=== PATIENT | male | born 1990 | race Caucasian/White ===

== ENCOUNTER 2020-10-02 10:39 | Outpatient (REF) | payer MEDICAID, SELFPAY | END 2020-10-02 10:40 | disposition home or self-care (01) | LOC: HO.LAB 10:39 | PROVIDERS: Visit Provider Internal Medicine | DX: Z20.828 Contact with and (suspected) exposure to other viral communicable diseases (principal) | CPT/HCPCS: C9803; U0003 ==

== ENCOUNTER 2020-10-31 14:56 | Outpatient (REF) | payer MEDICAID, SELFPAY | END 2020-10-31 14:57 | disposition home or self-care (01) | LOC: HO.LAB 14:56 | PROVIDERS: Visit Provider Internal Medicine | DX: Z20.828 Contact with and (suspected) exposure to other viral communicable diseases (principal) | CPT/HCPCS: C9803; U0003 ==

== ENCOUNTER 2021-08-26 12:50 | Outpatient (REF) | payer MEDICAID, SELFPAY | END 2021-08-26 12:51 | disposition home or self-care (01) | LOC: HO.LAB 12:50 | PROVIDERS: Visit Provider Internal Medicine | DX: Z20.822 Contact with and (suspected) exposure to COVID-19 (principal) | CPT/HCPCS: C9803; U0003; U0005 ==

== ENCOUNTER 2021-08-29 09:51 | Outpatient (REF) | payer MEDICAID, SELFPAY | END 2021-08-29 09:52 | disposition home or self-care (01) | LOC: HO.LAB 09:51 | PROVIDERS: Visit Provider Internal Medicine | DX: Z20.822 Contact with and (suspected) exposure to COVID-19 (principal) | CPT/HCPCS: C9803; U0003; U0005 ==

== ENCOUNTER 2021-09-30 22:21 | Emergency (ER) | payer MEDICAID, SELFPAY ==
[2021-09-30 22:31] VITALS: BP 126/77; PULSE 78; RESP 16; TEMP 36.8; O2SAT 97; BMI 29.0
[2021-09-30] MEDS: Amoxicillin 500 MG CAPSULE PO (23:59)
[2021-09-30] MEDS: Ibuprofen 800 MG TABLET PO (23:59)
--- NOTE | 2021-10-01 00:01 | ED_ITS ---
HPI - Dental/Oral General Chief complaint: Dental/Oral Stated complaint: dental pain Time Seen by Provider: 09/30/21 23:36 Source: patient Mode of arrival: ambulatory Limitations: no limitations History of Present Illness HPI Narrative: Patient presents to the ED for left upper molar dental pain for days. Patient denies any facial swelling, drooling, change in voice, headacne, recent trauma, weakness, neck pain, chest pain, or shortness of breath. Related Data Previous Rx's Medication Instructions Recorded amoxicillin 500 mg capsule 500 mg PO TID 10 Days #30 cap 10/01/21 naproxen 500 mg tablet 500 mg PO BID PRN #20 tab 10/01/21 Allergies Allergy/AdvReac Type Severity Reaction Status Date / Time No Known Allergies Allergy Verified 09/30/21 22:49 Review of Systems Review of Systems: Yes all other systems are reviewed and are negative Constitutional: Constitutional: Reports as per HPI and Reports no additional constitutional complaints Eyes: Eyes: Reports as per HPI and Reports no additional eye complaints ENT: Reports system reviewed and no additional complaints, except as documented and Reports as per HPI Comments: dental pain. Cardiovascular: Cardiovascular: Reports as per HPI and Reports no additional cardiovascular complaints Respiratory: Respiratory: Reports as per HPI and Reports no additional respiratory complaints Gastrointestinal: Gastrointestinal: Reports as per HPI and Reports no additional gastrointestinal complaints Genitourinary: Genitourinary: Reports no additional male genitourinary complaints and Reports as per HPI Musculoskeletal: Musculoskeletal: Reports no additional musculoskeletal complaints and Reports as per HPI Neurologic: Reports system reviewed and no additional complaints, except as documented and Reports as per HPI Psychiatric: Psychiatric: Reports no additional psychiatric complaints and Reports as per HPI [facility] Social History Social History Advance Directives: No Advance Directives Information Provided: No Physical Exam Vital Signs: Vital Signs: Last Vital Signs Temp 98.2 F 09/30/21 22:31 Pulse 78 09/30/21 22:31 Resp 16 09/30/21 22:31 BP 126/77 09/30/21 22:31 Pulse Ox 97 09/30/21 22:31 Body Mass Index 29.0 Const: General: cooperative, healthy appearing, comfortable, no acute distress, well developed, alert, awake and Physically active Orientation/consciousness: patient oriented x3 HENMT: Other: negative for facial or neck swelling Head: Yes normal to inspection, Yes No palpable skull fracture present, Yes normocephalic, Yes atraumatic, No abrasion, No Acrocyanosis present, No Gordon's sign, No contusion, No cranial bruits, No hematoma, No laceration, No occipital foramen tenderness, No palpable skull fracture, No raccoon eyes, No scalp lesion, No scalp tenderness, No Temporal artery tenderness present and No periorbital ecchymosis Teeth image: 1. tooth is decaying and tender on palpation. negative for gum swelling, redness, pus discharge, or abscess. Eyes: General: appearance normal, both eyes and all related structures Neck: Neck: Yes normal visual inspection, Yes full ROM, Yes no lymp hadenopathy, Yes no meningeal signs, Yes trachea midline, Yes supple, No anterior neck swelling and No tender Chest: Chest palpation & inspection: normal inspection of the chest and normal palpation of entire chest wall Resp: Effort & Inspection: normal respiratory effort and able to speak in complete sentences Auscultation: clear to auscultation bilaterally Cardio: Jugular venous distension: no JVD Heart sounds: S1 normal heart sound present and S2 normal heart sound present GI: Inspection: Yes normal to inspection and No abdominal wall ecchymosis Palpation (GI): Soft to palpation, not firm, nontender, no guarding and not rigid : General: No CVA tenderness and Yes no CVA tenderness Back/Spine/Pelvis: Back: no CVA tenderness, No CVA tenderness and No back tenderness Skin: General skin exam: no rashes or lesions noted and elasticity normal Neuro: General: patient oriented x3, gait normal, no meningeal signs and CN's II-XI intact bilaterally Cranial nerves: Yes CN's II-XII intact bilaterally Extrem: General: Yes normal to inspection and Yes full ROM Psych: Appearance: grossly normal, well kempt and not disheveled Course Course Course Narrative: Toothache. Reevaluation(s) Reevaluation #1: Patient discharged with antibiotics and pain meds. patient given lists of dentists Time: 00:44 MDM - Dental/Oral MDM Narrative Medical decision making narrative: toothache Discharge Plan Discharge Clinical Impression: Toothache Patient Disposition: Home, Self-Care Instructions: Toothache (ED) Additional Instructions: Return to the ED immediatley for any facial swelling, drooling, severe pain, neck swelling, change in voice, chest pain, shorntess of breath, intractable fevers, or any other concerning symptoms. Please follow up with any dentist on list we gave you in the ED. Prescriptions: New amoxicillin 500 mg capsule 500 mg PO TID 10 Days Qty: 30 RF: 0 naproxen 500 mg tablet 500 mg PO BID PRN (Reason: pain) Qty: 20 RF: 0 Stand Alone Forms: Work/School Release Interventions: ED Discharge Assessment Last Done: 10/01/21 00:13 Discharge Date/Time: 10/01/21 00:18 Print Language: Spanish
== END 2021-10-01 00:18 | disposition home or self-care (01) ==
PROVIDERS: Emergency Provider Internal Medicine
DX: K08.89 Other specified disorders of teeth and supporting structures (principal); Z79.899 Other long term (current) drug therapy
CPT/HCPCS: 99283; 99284

== ENCOUNTER 2021-10-10 04:36 | Emergency (ER) | payer MEDICAID, SELFPAY ==
[2021-10-10 04:38] VITALS: BP 129/82; PULSE 120; RESP 16; TEMP 36.9; O2SAT 98; BMI 28.8
[2021-10-10] MEDS: diphenhydrAMINE HCL 25 MG TABLET 50 MG PO (05:21)
[2021-10-10 05:26] VITALS: BP 133/80; PULSE 97; RESP 16; TEMP 36.8; O2SAT 97
--- NOTE | 2021-10-10 05:32 | PC.NURSE ---
pt a&o, no sob or chest pain. pt has rash on back and trunk. pt able to speak in full sentences, no respiratory distress.
--- NOTE | 2021-10-10 05:44 | ED.SKABFB ---
HPI - Skin/Abscess/Foreign Bdy General Chief complaint: Skin/Abscess/Foreign Body Stated complaint: RASH ALLERGIC REACTION Time Seen by Provider: 10/10/21 05:14 Source: patient Mode of arrival: ambulatory History of Present Illness HPI narrative: This is a 31-year-old male with history of asthma who presents to the ER after having taken a family member's tramadol and then awoke approximately 1 hour ago with feeling of itchy skin and noting that he had a rash especially to his back and trunk area. He otherwise denies any difficulty breathing or swallowing and denies any facial/tongue/lip swelling or nausea/vomiting/diarrhea. Related Data Previous Rx's Medication Instructions Recorded amoxicillin 500 mg capsule 500 mg PO TID 10 Days #30 cap 10/01/21 naproxen 500 mg tablet 500 mg PO BID PRN #20 tab 10/01/21 Allergies Allergy/AdvReac Type Severity Reaction Status Date / Time No Known Allergies Allergy Verified 09/30/21 22:49 Review of Systems Review of Systems: Pertinent positives and negatives as stated in HPI 10 point review of systems is otherwise negative. PMFSH Past Medical History Source: nursing notes reviewed Medical History Asthma Asthma action plan declined Social History Social History Patient Tobacco Use Status: Current everyday Tobacco user Use of substances other than those prescribed or required for medical reasons: No Substance Use Type: Marijuana Advance Directives: No Advance Directives Information Provided: Yes Physical Exam Vital Signs: Vital Signs: Last Vital Signs Temp 98.2 F 10/10/21 05:26 Pulse 97 10/10/21 05:26 Resp 16 10/10/21 05:26 BP 133/80 10/10/21 05:26 Pulse Ox 97 10/10/21 05:26 Body Mass Index 28.8 VITAL SIGNS: Reviewed. GENERAL: Well developed, well nourished, in no acute distress. HEAD: Normocephalic/atraumatic EYES: PERRLA, EOMI OROPHARYNX: no oral lesions noted, posterior pharynx clear, no facial/lip/tongue swelling LUNGS: Normal breath sounds. No adventitious sounds or accessory muscle use. SpO2<97> CARDIOVASCULAR: Regular rate and rhythm without noted murmurs ABDOMEN: Soft, non-tender, non-distended with bowel sounds. SKIN: Inspection of the skin reveals urticarial rash noted to back and trunk area NEUROLOGIC: Alert and oriented x 4. Course Course Course Narrative: This is a 31-year-old male with history and clinical presentation consistent with urticarial rash likely secondary to tramadol. This was communicated to the patient and he was cautioned regarding taking the medication again. Distribution was not consistent with direct contact exposure to new lotions/colognes/body soaps and patient denied any new food items. Patient was provided with 50 mg of Benadryl p.o. with good response and discharged home in stable condition. Discharge Plan Discharge Clinical Impression: Urticarial rash Patient Disposition: Home, Self-Care Instructions: Urticaria (ED) Additional Instructions: Return to the ER for acute worsening of symptoms. Prescriptions: No Action amoxicillin 500 mg capsule 500 mg PO TID 10 Days Qty: 30 RF: 0 naproxen 500 mg tablet 500 mg PO BID PRN (Reason: pain) Qty: 20 RF: 0
== END 2021-10-10 06:17 | disposition home or self-care (01) ==
PROVIDERS: Emergency Provider Student in an Organized Health Care Education/Training Program
DX: L50.0 Allergic urticaria (principal); T40.425A Adverse effect of tramadol, initial encounter; Y92.9 Unspecified place or not applicable
CPT/HCPCS: 99283; 99284; Q0163

== ENCOUNTER 2022-05-12 07:04 | Emergency (ER) | payer MEDICAID, SELFPAY ==
[2022-05-12 07:15] VITALS: BP 155/103; PULSE 94; RESP 24; TEMP 37.1; O2SAT 98; BMI 28.2
--- NOTE | 2022-05-12 07:22 | ED_ITS ---
HPI - Ear Problem General Chief complaint: Ear Problems Stated complaint: Ear infection Time Seen by Provider: 05/12/22 07:22 Source: patient Mode of arrival: ambulatory Limitations: no limitations History of Present Illness MD Complaint: ear pain Location: right ear Duration: constant Severity: moderate Relieving factors: nothing Exacerbating factors: position of head and palpation Context: other (hx of ear infection in the past) Discharge from ear: no Treatment prior to arrival: other (tried to put hydrogen peroxide in ear) Related Data Previous Rx's Medication Instructions Recorded amoxicillin 500 mg capsule 500 mg PO TID 10 days #30 caps 10/01/21 naproxen 500 mg tablet 500 mg PO BID PRN pain #20 tabs 10/01/21 amoxicillin 500 mg capsule 500 mg PO TID 7 days #21 caps 05/12/22 ibuprofen 600 mg tablet 600 mg PO Q6H PRN pain #30 tabs 05/12/22 ofloxacin 0.3 % ear drops 10 drp otic (ears) DAILY 7 days #5 05/12/22 mL Allergies Allergy/AdvReac Type Severity Reaction Status Date / Time No Known Allergies Allergy Verified 09/30/21 22:49 Review of Systems Review of Systems: Constitutional : no Fever, no Chills ENT/Mouth : no sore throat, no runny nose, pos ear pain Eyes: No Discharge Cardiovascular : No Chest Pain, No SOB Respiratory : No Cough, No Sputum Gastrointestinal : No Nausea, No Vomiting, No Diarrhea Musculoskeletal : positive Myalgia Skin : No rash Neuro : No Headache PMFSH Past Medical History Attestation statement: The following information was validated with the patient. Medical History Asthma Asthma action plan declined Social History Social History Patient Tobacco Use Status: Current everyday Tobacco user Substance Use Type: Marijuana Advance Directives: No Advance Directives Information Provided: No Physical Exam Vital Signs: Vital Signs: Last Vital Signs Temp 98.7 F 05/12/22 07:15 Pulse 94 05/12/22 07:15 Resp 24 H 05/12/22 07:15 BP 155/103 H 05/12/22 07:15 Pulse Ox 98 05/12/22 07:15 O2 Del Method 05/12/22 07:15 BMI result Body Mass Index 28.2 Appearance: Alert. Oriented X3. No acute distress. Eyes: Pupils equal, round and reactive to light. ENT: Pharynx normal. no swelling no trismus, L ear normal, R ear ext normal no swelling, R ear canal moderate erythema no swelling, R TM bulging with loss of landmarks and light reflex no perforation, small yellow effusion seen Neck: Normal inspection. Neck supple. CVS: Pulses normal. Respiratory: No respiratory distress. Abdomen: atraumatic Skin: Skin warm and dry. Normal skin color. Extremities: No lower extremity edema. Neuro: Oriented X 3. No motor deficit. No sensory deficit. MDM - Ear MDM Narrative Medical decision making narrative: 31 yo male hx of asthma here with R otitis externa and R AOM - no signs of deeper space infection, neuro intact - no recent swimming activity no perf oration at this time will start on gtts, oral amoxicillin and NSAIDs, discussed follow up Discharge Plan Discharge Clinical Impression: Otitis externa Qualifiers: Otitis externa type: diffuse Chronicity: acute Laterality: right Qualified Code(s): H60.311 - Diffuse otitis externa, right ear Otitis media Qualifiers: Otitis media type: suppurative Chronicity: acute Laterality: right Recurrence: non-recurrent Spontaneous tympanic membrane rupture: without spontaneous rupture Qualified Code(s): H66.001 - Acute suppurative otitis media without spontaneous rupture of ear drum, right ear Patient Disposition: Home, Self-Care Instructions: Otitis Externa (ED), Ear Infection (ED) Additional Instructions: return to ED for any worsening symptoms or concerns Prescriptions: New amoxicillin 500 mg capsule 500 mg PO TID 7 Days Qty: 21 0RF ofloxacin 0.3 % drops 10 drp otic (ears) DAILY 7 Days Qty: 5 0RF ibuprofen 600 mg tablet 600 mg PO Q6H PRN (Reason: pain) Qty: 30 0RF No Action amoxicillin 500 mg capsule 500 mg PO TID 10 Days Qty: 30 0RF naproxen 500 mg tablet 500 mg PO BID PRN (Reason: pain) Qty: 20 0RF
[2022-05-12] MEDS: Amoxicillin 500 MG CAPSULE PO (07:36)
[2022-05-12] MEDS: Ibuprofen 600 MG TABLET PO (07:36)
== END 2022-05-12 07:40 | disposition home or self-care (01) ==
PROVIDERS: Emergency Provider Emergency Medicine
DX: H60.311 Diffuse otitis externa, right ear (principal); H66.001 Acute suppurative otitis media without spontaneous rupture of ear drum, right ear; F17.200 Nicotine dependence, unspecified, uncomplicated; F12.90 Cannabis use, unspecified, uncomplicated
CPT/HCPCS: 99283

== ENCOUNTER 2023-02-17 15:14 | Emergency (ER) | payer MEDICAID, SELFPAY ==
--- NOTE | 2023-02-17 15:49 | ED.GENADULT ---
HPI - General Adult General Chief complaint: Upper Respiratory Symptoms <Claude Wilder - Last Filed: 02/17/23 15:50> Stated complaint: Fever, cough, congestion <Claude Wilder - Last Filed: 02/17/23 15:50> Time Seen by Provider: 02/17/23 15:57 <Claude Wilder - Last Filed: 02/17/23 15:50> Source: patient <DELILAH Grove - Last Filed: 02/17/23 17:40> Mode of arrival: ambulatory <DELILAH Grove - Last Filed: 02/17/23 17:40> Limitations: no limitations <DELILAH Grove Last Filed: 02/17/23 17:40> History of Present Illness HPI narrative: Patient is a 32 year old assigned male at with no reported medical history presenting to the emergency department today with not feeling well with a sick child at home. Patient states that since yesterday he has not felt well with a subjective fever and diarrhea. Patient denies any dizziness, lightheadedness, abdominal pain, nausea, vomiting, chills, blurry vision, double vision, loss of vision, chest pain, difficulty breathing, shortness of breath, back pain, night sweats, pain with urination, increased urinary frequency, increased urinary urgency, blood in his urine or stool, syncope or a near syncopal episode, recent trauma or falls, bowel incontinence, bladder incontinence, bowel retention, bladder retention, or any other complaints at this time. <DELILAH Grove - Last Filed: 02/17/23 17:40> Onset (ago): day(s) (1) <DELILAH Grove - Last Filed: 02/17/23 17:40> Severity: mild <DELILAH Grove Last Filed: 02/17/23 17:40> Severity scale (1-10): 1 <DELILAH Grove Last Filed: 02/17/23 17:40> Relieving factors: none <DELILAH Grove Last Filed: 02/17/23 17:40> Exacerbating factors: none <DELILAH Grove Last Filed: 02/17/23 17:40> Associated symptoms: fever/chills <DELILAH Grove Last Filed: 02/17/23 17:40> Treatments prior to arrival: none <DELILAH Grove - Last Filed: 02/17/23 17:40> Related Data Home medications: Previous Rx's Medication Instructions Recorded amoxicillin 500 mg capsule 500 mg PO TID 10 days #30 caps 10/01/21 naproxen 500 mg tablet 500 mg PO BID PRN pain #20 tabs 10/01/21 amoxicillin 500 mg capsule 500 mg PO TID 7 days #21 caps 05/12/22 ibuprofen 600 mg tablet 600 mg PO Q6H PRN pain #30 tabs 05/12/22 ofloxacin 0.3 % ear drops 10 drp otic (ears) DAILY 7 days #5 05/12/22 mL <Claude Wilder - Last Filed: 02/17/23 15:50> Allergies/adverse reactions: Allergies Allergy/AdvReac Type Severity Reaction Status Date / Time No Known Allergies Allergy Verified 09/30/21 22:49 <Claude Wilder - Last Filed: 02/17/23 15:50> Review of Systems Constitutional: Constitutional: Reports no additional constitutional complaints, Denies chills, Reports fever(s) (subjective) and Denies night sweats <DELILAH Grove - Last Filed: 02/17/23 17:40> Eyes: Eyes: Reports no additional eye complaints, Denies blurry vision, Denies change in vision, Denies diplopia, Denies eye discharge, Denies loss of vision and Denies eye pain <DELILAH Grove - Last Filed: 02/17/23 17:40> ENT: Denies dizziness <DELILAH Grove - Last Filed: 02/17/23 17:40> Cardiovascular: Cardiovascular: Reports no additional cardiovascular complaints, Denies chest pain, Denies lightheadedness, Denies Loss of Consciousness and Denies dyspnea <DELILAH Grove - Last Filed: 02/17/23 17:40> Respiratory: Respiratory: Reports no additional respiratory complaints and Denies dyspnea <DELILAH Grove Last Filed: 02/17/23 17:40> Gastrointestinal: Gastrointestinal: Reports no additional gastrointestinal complaints, Denies abdominal pain, Denies melena, Denies hematochezia, Denies change in bowel habits, Denies change in stool character and Reports diarrhea <DELILAH Grove - Last Filed: 02/17/23 17:40> Genitourinary: Genitourinary: Reports no additional male genitourinary complaints, Denies hematuria, Denies oliguria, Denies difficulty urinating, Denies dysuria, Denies urinary frequency, Denies urinary hesitancy, Denies urinary incontinence and Denies urinary urgency <DELILAH Grove - Last Filed: 02/17/23 17:40> Musculoskeletal: Musculoskeletal: Reports no additional musculoskeletal complaints, Denies numbness and Denies tingling <DELILAH Grove - Last Filed: 02/17/23 17:40> Neurologic: Denies dizziness, Denies loss of vision, Denies numbness and Denies tingling <DELILAH Grove - Last Filed: 02/17/23 17:40> Psychiatric: Psychiatric: Reports no additional psychiatric complaints <DELILAH Grove - Last Filed: 02/17/23 17:40> Endocrine: Endocrine: Reports no additional endocrine complaints <DELILAH Grove - Last Filed: 02/17/23 17:40> Hematologic/Lymphatic: Hematologic/Lymphatic: Reports no additional hematologic/lymphatic complaints <DELILAH Grove - Last Filed: 02/17/23 17:40> Allergic/Immunologic: Allergic/Immunologic: Reports no additional allergic/immunologic complaints <DELILAH Grove - Last Filed: 02/17/23 17:40> PMFSH Past Medical History Attestation statement: The following information was validated with the patient. <DELILAH Grove - Last Filed: 02/17/23 17:40> Source: old records reviewed and nursing notes reviewed <DELILAH Grove - Last Filed: 02/17/23 17:40> Medical History: Medical History Asthma Asthma action plan declined <Claude Wilder - Last Filed: 02/17/23 15:50> Social History Social History: Social History Patient Tobacco Use Status: Current everyday Tobacco user Substance Use Type: Marijuana Advance Directives: No Advance Directives Information Provided: No <Claude Wilder - Last Filed: 02/17/23 15:50> Physical Exam ED Vital Signs: Vital Signs - 24 hr 02/17/23 15:50 Temperature 98.7 F Pulse Rate 82 Respiratory Rate 18 Blood Pressure 142/81 H Pulse Oximetry 97 Oxygen Delivery Method Room Air BMI result Body Mass Index 29.0 <Claude Wilder - Last Filed: 02/17/23 15:50> Vital Signs - 24 hr 02/17/23 15:50 Temperature 98.7 F Pulse Rate 82 Respiratory Rate 18 Blood Pressure 142/81 H Pulse Oximetry 97 Oxygen Delivery Method Room Air BMI result Body Mass Index 29.0 <DELILAH Grove - Last Filed: 02/17/23 17:40> Const General: cooperative, no acute distress, alert and awake <DELILAH Grove - Last Filed: 02/17/23 17:40> Nutritional Appearance: well nourished <DELILAH Grove - Last Filed: 02/17/23 17:40> Orientation/consciousness: patient oriented x3 <DELILAH Grove - Last Filed: 02/17/23 17:40> Limitations: no limitations <DELILAH Grove - Last Filed: 02/17/23 17:40> HENMT Head: Yes normal to inspection and Yes atraumatic <DELILAH Grove - Last Filed: 02/17/23 17:40> Ears: hearing grossly normal bilaterally and external ears normal <DELILAH Grove - Last Filed: 02/17/23 17:40> General nose exam: Normal external nose present, no nasal discharge noted and no epistaxis <DELILAH Grove - Last Filed: 02/17/23 17:40> Face and sinus: Yes normal facial exam, No abrasion and No laceration <DELILAH Grove - Last Filed: 02/17/23 17:40> Mouth: Normal oral and palatal mucosa present, no drooling and no muffled voice <DELILAH Grove - Last Filed: 02/17/23 17:40> Eyes General: appearance normal, both eyes and all related structures <DELILAH Grove - Last Filed: 02/17/23 17:40> Periorbital: periorbital findings normal <Shwetha Grimes PA - Last Filed: 02/17/23 17:40> Eyelids: Yes eyelids normal <Shwetha Grimes PA - Last Filed: 02/17/23 17:40> Conjunctivae: conjunctivae normal <Shwetha Grimes PA - Last Filed: 02/17/23 17:40> Pupils: Equal, round and reactive pupils present <Shwetha Grimes PA - Last Filed: 02/17/23 17:40> EOM: EOMs intact bilaterally <Shwetha Grimes PA - Last Filed: 02/17/23 17:40> Neck Neck: Yes normal visual inspection, Yes full ROM and Yes no lymphadenopathy <Shwetha Grimes PA - Last Filed: 02/17/23 17:40> Chest Chest palpation & inspection: normal inspection of the chest <Shwetha Grimes PA - Last Filed: 02/17/23 17:40> Resp Effort & Inspection: normal respiratory effort and able to speak in complete sentences <Shwetha Grimes PA - Last Filed: 02/17/23 17:40> Auscultation: clear to auscultation bilaterally <Shwetha Grimes PA - Last Filed: 02/17/23 17:40> Cardio Rate: regular rate <Shwetha Grimes PA - Last Filed: 02/17/23 17:40> Rhythm: regular rhythm <Shwetha Grimes PA - Last Filed: 02/17/23 17:40> GI Inspection: Yes normal to inspection <Shwetha Grimes PA - Last Filed: 02/17/23 17:40> Palpation (GI): Soft to palpation, not firm, nontender and no guarding <Shwetha Grimes PA - Last Filed: 02/17/23 17:40> Neuro General: patient oriented x3 and moves all extremities <Shwetha Grimes PA - Last Filed: 02/17/23 17:40> Cranial nerves: Yes Equal, round and reactive pupils present <Shwteha Grimes PA - Last Filed: 02/17/23 17:40> Cognition (Neuro): normal cognition <Shwetha Grimes PA - Last Filed: 02/17/23 17:40> Motor exam (neuro): 5/5 motor strength present throughout <Shwetha Grimes PA - Last Filed: 02/17/23 17:40> Sensory Exam: Normal double simultaneous stimulation for sensation <Shwethasebastian KimDELILAH gonzalez - Last Filed: 02/17/23 17:40> Coordination: [id number] test normal <Shwetha KimDELILAH gonzalez - Last Filed: 02/17/23 17:40> Extrem General: Yes normal to inspection, Yes full ROM and Yes capillary refill normal <Shwethasebastian KimDELILAH gonzalez - Last Filed: 02/17/23 17:40> Psych Appearance: grossly normal <Shwethasebastian KimDELILAH gonzalez - Last Filed: 02/17/23 17:40> Mental Status: mental status grossly normal <DELILAH Grove - Last Filed: 02/17/23 17:40> Affect: normal affect <Shwethasebastian KimDELILAH gonzalez - Last Filed: 02/17/23 17:40> Attitude: cooperative <DELILAH Grove - Last Filed: 02/17/23 17:40> Thought process: Normal thought process present <DELILAH Grove - Last Filed: 02/17/23 17:40> Thought content: Normal thought content present <DELILAH Grove - Last Filed: 02/17/23 17:40> Insight: Good insight present (Psych) <DELILAH Grove - Last Filed: 02/17/23 17:40> Course Course Course Narrative: 32 year old male presents for evaluation of fever and viral symptoms. Cough, congestion. Viral panel ordered <Claude Wilder - Last Filed: 02/17/23 15:50> Medical Decision Making Medical Decision Making MDM Narrative: Patient is a 32 year old assigned male at with no reported medical history presenting to the emergency department today feeling generally unwell. Patient's physical exam was unremarkable. Patient's RSV/Influenza/COVID-19 swab was negative. I explained my physical exam findings as well as all test results to the patient. I answered all questions asked by the patient. I stressed the importance of the patient taking his medication as prescribed. I stressed the importance of the patient following up with his primary care provider. I stressed the importance of the patient returning to the emergency department immediately if his symptoms were to worsen or if he were to develop any dizziness, shortness of breath, difficulty breathing, chest pain, blurry vision, loss of vision, nausea, vomiting, abdominal pain, fever, chills, back pain, or any other complaints. Patient verbalized agreement and understanding with this treatment plan and discharge. <DELILAH Grove - Last Filed: 02/17/23 17:40> Differential Diagnosis Differential Diagnoses: The differential diagnosis associated with the presentation includes <DELILAH Grove - Last Filed: 02/17/23 17:40> viral illness <DELILAH Grove - Last Filed: 02/17/23 17:40> Lab Data MDM Lab Attestation statement: I reviewed the patient's lab results. <DELILAH Grove - Last Filed: 02/17/23 17:40> Labs: Lab Results 02/17/23 Range/Units 16:07 Influenza Type A (PCR) NEGATIVE (Negative) Influenza Type B (PCR) NEGATIVE (Negative) RSV RNA Qual (PCR) NEGATIVE (Negative) SARS-CoV-2 RNA (RT-PCR) NEGATIVE (Negative) <Claude Wilder - Last Filed: 02/17/23 15:50> Lab Results 02/17/23 Range/Units 16:07 Influenza Type A (PCR) NEGATIVE (Negative) Influenza Type B (PCR) NEGATIVE (Negative) RSV RNA Qual (PCR) NEGATIVE (Negative) SARS-CoV-2 RNA (RT-PCR) NEGATIVE (Negative) <DELILAH Grove - Last Filed: 02/17/23 17:40> Discharge Plan Discharge Clinical Impression: Viral infection <Claude Wilder - Last Filed: 02/17/23 15:50> Patient Disposition: Home, Self-Care <Claude Wilder - Last Filed: 02/17/23 15:50> Instructions: Viral Syndrome (ED) <Claude Wilder - Last Filed: 02/17/23 15:50> Additional Instructions: Follow up with your primary care provider. Return to the emergency department immediately if your symptoms worsen or if you develop any dizziness, shortness of breath, difficulty breathing, chest pain, blurry vision, loss of vision, nausea, vomiting, abdominal pain, fever, chills, back pain, or any other complaints. <Claude Wilder - Last Filed: 02/17/23 15:50> Prescriptions: No Action amoxicillin 500 mg capsule 500 mg PO TID 7 Days Qty: 21 0RF ofloxacin 0.3 % drops 10 drp otic (ears) DAILY 7 Days Qty: 5 0RF ibuprofen 600 mg tablet 600 mg PO Q6H PRN (Reason: pain) Qty: 30 0RF amoxicillin 500 mg capsule 500 mg PO TID 10 Days Qty: 30 0RF naproxen 500 mg tablet 500 mg PO BID PRN (Reason: pain) Qty: 20 0RF <Claude Wilder - Last Filed: 02/17/23 15:50> Referrals: [facility] [Primary Care Provider] - <Claude Wilder - Last Filed: 02/17/23 15:50> Stand Alone Forms: Work/School Release <Claude Wilder - Last Filed: 02/17/23 15:50> Print Language: Divehi <Claude Wilder - Last Filed: 02/17/23 15:50>
[2023-02-17 15:50] VITALS: BP 142/81; PULSE 82; RESP 18; TEMP 37.1; O2SAT 97; BMI 29.0
[2023-02-17 16:58] LABS: Influenza A PCR NEGATIVE (Negative); Influenza B PCR NEGATIVE (Negative); Resp Syncy Virus RNA Qual PCR NEGATIVE (Negative); SARS COV2 PCR INHOUSE NEGATIVE (Negative)
== END 2023-02-17 18:18 | disposition home or self-care (01) ==
PROVIDERS: Physician Assistant; Emergency Provider Emergency Medicine
DX: B34.9 Viral infection, unspecified (principal); R05.9 Cough, unspecified; Z20.822 Contact with and (suspected) exposure to COVID-19; Z20.828 Contact with and (suspected) exposure to other viral communicable diseases
CPT/HCPCS: 0241U; 99282; 99283

== ENCOUNTER 2023-10-04 20:11 | Emergency (ER) | payer SELFPAY ==
--- NOTE | 2023-10-04 20:48 | ED_ITS ---
HPI - General Adult General Chief complaint: General Medical Stated complaint: headache,vomiting Related Data Previous Rx's Medication Instructions Recorded amoxicillin 500 mg capsule 500 mg PO TID 10 days #30 caps 10/01/21 naproxen 500 mg tablet 500 mg PO BID PRN pain #20 tabs 10/01/21 amoxicillin 500 mg capsule 500 mg PO TID 7 days #21 caps 05/12/22 ibuprofen 600 mg tablet 600 mg PO Q6H PRN pain #30 tabs 05/12/22 ofloxacin 0.3 % ear drops 10 drp otic (ears) DAILY 7 days #5 05/12/22 mL amoxicillin 500 mg tablet 500 mg PO Q8H #21 tabs 10/17/23 ibuprofen 600 mg tablet 600 mg PO Q6H PRN pain #20 tabs 10/17/23 albuterol sulfate 2.5 mg/3 mL 2.5 mg (3 mL) inhalation Q4H PRN 10/30/23 (0.083 %) solution for nebulization shortness of breath or wheezing #90 mL albuterol sulfate 90 mcg/actuation 2 puff inhalation Q4-6H PRN 10/30/23 aerosol inhaler shortness of breath or wheezing #8.5 grams nicotine 14 mg/24 hr daily 1 patch transdermal DAILY #14 ea 10/30/23 transdermal patch prednisone 20 mg tablet 40 mg (2 x 20 mg) PO DAILY #8 tabs 10/30/23 loperamide 2 mg tablet (Imodium 2 mg PO Q4H PRN loose stool #20 01/22/24 A-D) tabs omeprazole 20 mg capsule,delayed 20 mg PO DAILY 30 days #30 caps 01/22/24 release ondansetron 4 mg disintegrating 4 mg PO Q6-8H PRN nausea and 01/22/24 tablet vomiting #14 tabs Allergies Allergy/AdvReac Type Severity Reaction Status Date / Time No Known Allergies Allergy Verified 10/30/23 17:07 [facility] Past Medical History Medical History Asthma Asthma action plan declined Social History Social History Patient Tobacco Use Status: Current everyday Tobacco user Smoked in Last 30 Days: No Substance Use Type: Marijuana Advance Directives: No Advance Directives Information Provided: Yes Physical Exam ED Vital Signs: BMI result Body Mass Index 29.9 Course Course Course Narrative: RME- 33 year old male presents for evaluation of abdominal pain, vomiting, and diarrhea. Also complains of a headache. Plan for labs, UA, viral swabs Discharge Plan Discharge Clinical Impression: Headache, Vomiting Patient Disposition: Left W/O Completing Treatment Prescriptions: No Action amoxicillin 500 mg capsule 500 mg PO TID 7 Days Qty: 21 0RF ofloxacin 0.3 % drops 10 drp otic (ears) DAILY 7 Days Qty: 5 0RF ibuprofen 600 mg tablet 600 mg PO Q6H PRN (Reason: pain) Qty: 30 0RF amoxicillin 500 mg capsule 500 mg PO TID 10 Days Qty: 30 0RF naproxen 500 mg tablet 500 mg PO BID PRN (Reason: pain) Qty: 20 0RF prednisone 20 mg tablet 40 mg PO DAILY Qty: 8 0RF albuterol sulfate 90 mcg/actuation HFA aerosol inhaler 2 puff inhalation Q4-6H PRN (Reason: shortness of breath or wheezing) Qty: 8.5 0RF albuterol sulfate 2.5 mg /3 mL (0.083 %) solution for nebulization 2.5 mg inhalation Q4H PRN (Reason: shortness of breath or wheezing) Qty: 90 0RF nicotine 14 mg/24 hr patch 24 hour 1 patch transdermal DAILY Qty: 14 0RF ibuprofen 600 mg tablet 600 mg PO Q6H PRN (Reason: pain) Qty: 20 0RF amoxicillin 500 mg tablet 500 mg PO Q8H Qty: 21 0RF loperamide [Imodium A-D] 2 mg tablet 2 mg PO Q4H PRN (Reason: loose stool) Qty: 20 0RF omeprazole 20 mg capsule,delayed release(DR/EC) 20 mg PO DAILY 30 Days Qty: 30 0RF ondansetron 4 mg tablet,disintegrating 4 mg PO Q6-8H PRN (Reason: nausea and vomiting) Qty: 14 0RF Discharge Date/Time: 10/04/23 23:28
[2023-10-04 20:49] VITALS: BP 137/79; PULSE 88; RESP 20; TEMP 36.4; O2SAT 99; BMI 29.9
== END 2023-10-04 23:28 | disposition left against medical advice (07) ==
PROVIDERS: Emergency Provider Emergency Medicine
DX: R51.9 Headache, unspecified (principal); F12.90 Cannabis use, unspecified, uncomplicated; F17.200 Nicotine dependence, unspecified, uncomplicated; R10.9 Unspecified abdominal pain; R11.10 Vomiting, unspecified; R19.7 Diarrhea, unspecified
CPT/HCPCS: 99281

== ENCOUNTER 2023-10-16 19:54 | Emergency (ER) | payer SELFPAY ==
[2023-10-16 20:23] VITALS: BP 135/73; PULSE 85; RESP 16; TEMP 37.2; O2SAT 98; BMI 29.9
--- NOTE | 2023-10-17 00:06 | ED.GENADULT ---
HPI - General Adult General Chief complaint: Dental/Oral Stated complaint: Dental pain Time Seen by Provider: 10/16/23 23:50 Source: patient, RN notes reviewed and old records reviewed Mode of arrival: ambulatory Limitations: no limitations History of Present Illness HPI narrative: 33-year-old male presents for evaluation of dental pain/facial pain on the right. He reports right upper molar pain for the last 2 weeks. He states that he has 3 separate cracked teeth in the area He denies any recent trauma to the area. He has had issues in the past and ?it gets better with antibiotics. He has been using ibuprofen and Orajel with only brief improvement Related Data Previous Rx's Medication Instructions Recorded amoxicillin 500 mg capsule 500 mg PO TID 10 days #30 caps 10/01/21 naproxen 500 mg tablet 500 mg PO BID PRN pain #20 tabs 10/01/21 amoxicillin 500 mg capsule 500 mg PO TID 7 days #21 caps 05/12/22 ibuprofen 600 mg tablet 600 mg PO Q6H PRN pain #30 tabs 05/12/22 ofloxacin 0.3 % ear drops 10 drp otic (ears) DAILY 7 days #5 05/12/22 mL amoxicillin 500 mg tablet 500 mg PO Q8H #21 tabs 10/17/23 ibuprofen 600 mg tablet 600 mg PO Q6H PRN pain #20 tabs 10/17/23 Allergies Allergy/AdvReac Type Severity Reaction Status Date / Time No Known Allergies Allergy Verified 09/30/21 22:49 Review of Systems ENT: Reports dental pain PMFSH Past Medical History Medical History Asthma Asthma action plan declined Social History Social History Patient Tobacco Use Status: Current everyday Tobacco user Smoked in Last 30 Days: Yes Use of substances other than those prescribed or required for medical reasons: Yes Substance Use Type: Marijuana Substance Use Frequency: Chronic Longstanding Advance Directives: No Advance Directives Information Provided: No Physical Exam ED Vital Signs: Vital Signs - 24 hr 10/16/23 20:23 Temperature 99.0 F Pulse Rate 85 Respiratory Rate 16 Blood Pressure 135/73 Pulse Oximetry 98 Oxygen Delivery Method Room Air BMI result Body Mass Index 29.9 Const General: healthy appearing, comfortable, no acute distress, alert and awake Nutritional Appearance: well nourished Orientation/consciousness: patient oriented x3 HENMT Other: Patient has partial dental fractures to 3, 5, 7. All of these teeth have areas of necrosis to the 2s. There is minimal surrounding erythema, no significant gingival edema or evidence of abscess Head: Yes normocephalic and Yes atraumatic Teeth and gingiva: gingiva normal, caries and poor dentition Eyes Eyelids: Yes eyelids normal Conjunctivae: conjunctivae normal Sclerae: sclerae normal Corneas: corneas normal Pupils: Equal, round and reactive pupils present EOM: EOMs intact bilaterally Neck Neck: Yes full ROM Resp Effort & Inspection: normal respiratory effort, able to speak in complete sentences and not labored Skin General skin exam: elasticity normal Neuro General: patient oriented x3 Cranial nerves: Yes Equal, round and reactive pupils present and Yes Bilaterally intact EOM present Cognition (Neuro): normal cognition Extrem Other: Moving all extremities well without any obvious deformities Medical Decision Making Medical Decision Making [facility] Narrative: Patient has very poor dentition, chronic dental fractures. He appears to have indication of developing infection but no evidence of drainable abscess. Will treat with amoxicillin Differential Diagnosis Differential Diagnoses: The differential diagnosis associated with the presentation includes Dental caries Dental abscess Facial pain Toothache Discharge Plan Discharge Clinical Impression: Toothache, Atypical facial pain Patient Disposition: Home, Self-Care Instructions: Toothache (ED) Additional Instructions: Take amoxicillin 3 times daily for 7 days Use ibuprofen/Tylenol for pain Follow-up with your dentist Return for new or worsening symptoms Prescriptions: New ibuprofen 600 mg tablet 600 mg PO Q6H PRN (Reason: pain) Qty: 20 0RF amoxicillin 500 mg tablet 500 mg PO Q8H Qty: 21 0RF No Action amoxicillin 500 mg capsule 500 mg PO TID 7 Days Qty: 21 0RF ofloxacin 0.3 % drops 10 drp otic (ears) DAILY 7 Days Qty: 5 0RF ibuprofen 600 mg tablet 600 mg PO Q6H PRN (Reason: pain) Qty: 30 0RF amoxicillin 500 mg capsule 500 mg PO TID 10 Days Qty: 30 0RF naproxen 500 mg tablet 500 mg PO BID PRN (Reason: pain) Qty: 20 0RF Interventions: ED Discharge Assessment Last Done: 10/17/23 00:13
== END 2023-10-17 00:16 | disposition home or self-care (01) ==
PROVIDERS: Emergency Provider Emergency Medicine
DX: K08.89 Other specified disorders of teeth and supporting structures (principal); G50.1 Atypical facial pain; F17.200 Nicotine dependence, unspecified, uncomplicated; F12.90 Cannabis use, unspecified, uncomplicated
CPT/HCPCS: 99283; 99284

== ENCOUNTER 2023-10-30 17:02 | Emergency (ER) | payer SELFPAY ==
[2023-10-30 17:08] VITALS: BP 139/86; PULSE 95; RESP 18; TEMP 36.9; O2SAT 96; BMI 29.0
--- NOTE | 2023-10-30 17:08 | ED_ITS ---
HPI - SOB/Dyspnea General Chief Complaint: Asthma Stated Complaint: difficulty breathing, asthmatic Time Seen by Provider: 10/30/23 17:25 Source: patient Mode of arrival: ambulatory Limitations: no limitations History of Present Illness HPI Narrative: 33-year-old male with a history of asthma presents the ER with complaints of chest tightness, coughing, sneezing, nasal congestion, chills and subjective fevers since yesterday despite using his inhaler and nebulizer at home. Patient reports he has been using his inhaler multiple times. He did realize that his nebulizer is actually broken and he may not have been getting the medication he needed. Related Data Previous Rx's Medication Instructions Recorded amoxicillin 500 mg capsule 500 mg PO TID 10 days #30 caps 10/01/21 naproxen 500 mg tablet 500 mg PO BID PRN pain #20 tabs 10/01/21 amoxicillin 500 mg capsule 500 mg PO TID 7 days #21 caps 05/12/22 ibuprofen 600 mg tablet 600 mg PO Q6H PRN pain #30 tabs 05/12/22 ofloxacin 0.3 % ear drops 10 drp otic (ears) DAILY 7 days #5 05/12/22 mL amoxicillin 500 mg tablet 500 mg PO Q8H #21 tabs 10/17/23 ibuprofen 600 mg tablet 600 mg PO Q6H PRN pain #20 tabs 10/17/23 albuterol sulfate 2.5 mg/3 mL 2.5 mg (3 mL) inhalation Q4H PRN 10/30/23 (0.083 %) solution for nebulization shortness of breath or wheezing #90 mL albuterol sulfate 90 mcg/actuation 2 puff inhalation Q4-6H PRN 10/30/23 aerosol inhaler shortness of breath or wheezing #8.5 grams nicotine 14 mg/24 hr daily 1 patch transdermal DAILY #14 ea 10/30/23 transdermal patch prednisone 20 mg tablet 40 mg (2 x 20 mg) PO DAILY #8 tabs 10/30/23 Allergies Allergy/AdvReac Type Severity Reaction Status Date / Time No Known Allergies Allergy Verified 10/30/23 17:07 Review of Systems Review of Systems: Yes all other systems are reviewed and are negative Constitutional: Constitutional: Reports no additional constitutional complaints, Denies body ache(s), Reports chills, Reports fever(s), Denies headache(s) and Denies weakness Eyes: Eyes: Reports no additional eye complaints and Denies change in vision ENT: Reports system reviewed and no additional complaints, except as documented, Denies dizziness, Denies headache(s), Denies nasal congestion, Denies nasal discharge and Denies neck pain Cardiovascular: Cardiovascular: Reports no additional cardiovascular complaints, Denies chest pain, Denies leg edema and Denies dyspnea Respiratory: Respiratory: Reports no additional respiratory complaints, Reports cough, Denies dyspnea and Reports wheezing Gastrointestinal: Gastrointestinal: Reports no additional gastrointestinal complaints, Denies abdominal pain, Denies diarrhea, Denies nausea and Denies vomiting Genitourinary: Genitourinary: Denies urinary incontinence Musculoskeletal: Musculoskeletal: Reports no additional musculoskeletal complaints, Denies back pain, Denies arthralgias, Denies joint swelling, Denies neck pain, Denies numbness and Denies tingling Integumentary/Breasts: Skin/Breast: Reports system reviewed and no additional complaints, except as docu and Denies rash Neurologic: Reports system reviewed and no additional complaints, except as documented, Denies Abnormal speech present, Denies dizziness, Denies headache(s), Denies numbness, Denies tingling and Denies weakness Allergic/Immunologic: Allergic/Immunologic: Reports wheezing PMFSH Past Medical History Attestation statement: The following information was validated with the patient. Source: old records reviewed and nursing notes reviewed Medical History Asthma Asthma action plan declined Social History Social History Patient Tobacco Use Status: Current everyday Tobacco user Substance Use Type: Marijuana Advance Directives: No Advance Directives Information Provided: Yes Physical Exam Vital Signs: Vital Signs: Last Vital Signs Temp 98.5 F 10/30/23 17:08 Pulse 95 10/30/23 17:30 Resp 16 10/30/23 17:30 BP 139/86 10/30/23 17:08 Pulse Ox 96 10/30/23 17:08 O2 Del Method Room Air 10/30/23 17:08 BMI result Body Mass Index 29.0 Const: General: cooperative, healthy appearing, comfortable and no acute distress Orientation/consciousness: patient oriented x3 Limitations: no limitations HEENT: Head: Yes normal to inspection Ears: hearing grossly normal bilaterally and TM's normal bilaterally General nose exam: Normal external nose present Face and sinus: Yes normal facial exam Mouth: Normal oral and palatal mucosa present Throat: Yes posterior oropharynx normal, Yes tonsils normal and Yes uvula midline Eyes: General: appearance normal, both eyes and all related structures Pupils: Equal, round and reactive pupils present Neck: Neck: Yes normal visual inspection, Yes full ROM, Yes no lymphadenopathy and Yes no meningeal signs Chest: Chest palpation & inspection: normal inspection of the chest Resp: Effort & Inspection: normal respiratory effort Auscultation: wheezes Cardio: Rate: regular rate Rhythm: regular rhythm Peripheral pulses: Peripheral pulses 2+ throughout GI: Inspection: Yes normal to inspection Palpation (GI): Soft to palpation and nontender Auscultation: normal bowel sounds Back/Spine/Pelvis: Thoracic/Lumbar Spine: thoracic and lumbar spine normal to inspection Skin: General skin exam: no rashes or lesions noted Neuro: General: patient oriented x3, no meningeal signs, no focal motor deficits and normal sensation to monofilament Cranial nerves: Yes Equal, roun d and reactive pupils present Cognition (Neuro): normal cognition Speech: No Abnormal speech present Gait exam (Neuro): Normal gait present Motor exam (neuro): 5/5 motor strength present throughout Extrem: General: Yes normal to inspection, Yes no pedal edema and Yes no calf tenderness Course Course Course Narrative: This is an RME: Additional HPI, ROS, PE not included below will be deferred to primary provider. Patient is a 33-year-old male who presents emergency department for evaluation of chest tightness, shortness of breath, cough, nasal congestion, reporting concerns for asthma exacerbation unrelieved with inhaler and nebulizer. Symptom onset was yesterday evening. Denies known sick contacts. Has been waking each morning with excessive sweating but denies feeling sick, and no fever. Lung sounds with wheezing bilaterally. Plan: Placed orders for COVID-19/influenza testing in addition to ED bronchodilator protocol. Placed in waiting room pending bed availability. At this time no hypoxia, mild tachycardia, no tachypnea or increased work of breathing. Reevaluation(s) Reevaluation #1: 1820- wheezing is improved. patient be sent home with prednisone course. Reviewed worrisome signs symptoms of when to return to the emergency room. Comfortable plan for discharge home. Medications Administered Discontinued Medications Generic Name Dose Route Start Last Admin Trade Name Freq PRN Reason Stop Dose Admin Albuterol Sulfate 5 mg/ 7.5 mg 10/30/23 17:24 10/30/23 17:28 Albuterol Sulfate 2.5 mg INHALE 10/30/23 17:25 7.5 mg ONCE ONE Administration Prednisone 60 mg 10/30/23 17:33 10/30/23 17:42 Prednisone 20 Mg Tablet PO 10/30/23 17:34 60 mg ONCE ONE Administration Medical Decision Making Medical Decision Making [facility] Narrative: 33 year-old male with a history of asthma presents the ER with complaints of chest tightness, coughing, sneezing, nasal congestion, chills and subjective fevers since yesterday despite using his inhaler and nebulizer at home. Patient reports he has been using his inhaler multiple times. He did realize that his nebulizer is actually broken and he may not have been getting the medication he needed. On arrival patient with inspiratory and expiratory wheezing throughout Will give nebulizer, p.o. prednisone, check viral testing Differential Diagnosis Differential Diagnoses: The differential diagnosis associated with the presentation includes viral syndrome asthma exacerbation Admission/Observation Consideration of admission/observation: Escalation of care including admis portillo/observation considered No hypoxia or tachypnea requiring supplemental oxygen and or admission Lab Data [facility] Lab Attestation statement: I reviewed the patient's lab results. Labs: Lab Results 10/30/23 Range/Units 17:19 COVID-19 ([place]) Negative (Negative) COVID-19 Clin Com See Note Influenza Type A ([place]) Negative (Negative) Influenza Type B ([place]) Negative (Negative) Influenza A & B Note See Note Tests considered The following testing was considered but not selected: no hypoxia or tachypnea requiring cxr Prescription Management I considered prescription management with: Antibiotic Discharge Plan Discharge Clinical Impression: Asthma with acute exacerbation Patient Disposition: Home, Self-Care Instructions: Asthma (ED) Additional Instructions: testing for flu and COVID are negative Start prednisone tomorrow Prescriptions: New prednisone 20 mg tablet 40 mg PO DAILY Qty: 8 0RF albuterol sulfate 90 mcg/actuation HFA aerosol inhaler 2 puff inhalation Q4-6H PRN (Reason: shortness of breath or wheezing) Qty: 8.5 0RF albuterol sulfate 2.5 mg /3 mL (0.083 %) solution for nebulization 2.5 mg inhalation Q4H PRN (Reason: shortness of breath or wheezing) Qty: 90 0RF nicotine 14 mg/24 hr patch 24 hour 1 patch transdermal DAILY Qty: 14 0RF No Action amoxicillin 500 mg capsule 500 mg PO TID 7 Days Qty: 21 0RF ofloxacin 0.3 % drops 10 drp otic (ears) DAILY 7 Days Qty: 5 0RF ibuprofen 600 mg tablet 600 mg PO Q6H PRN (Reason: pain) Qty: 30 0RF amoxicillin 500 mg capsule 500 mg PO TID 10 Days Qty: 30 0RF naproxen 500 mg tablet 500 mg PO BID PRN (Reason: pain) Qty: 20 0RF ibuprofen 600 mg tablet 600 mg PO Q6H PRN (Reason: pain) Qty: 20 0RF amoxicillin 500 mg tablet 500 mg PO Q8H Qty: 21 0RF
--- NOTE | 2023-10-30 17:20 | MHC.EDTECH ---
Flu /Covid swab collected and sent to lab .
[2023-10-30] MEDS: Albuterol Sulfate 5 MG, Albuterol Sulfate (0.083%) 2.5 MG 7.5 MG INHALE (17:28)
[2023-10-30 17:30] VITALS: PULSE 95; RESP 16; O2SAT 98
[2023-10-30] MEDS: predniSONE 20 MG TABLET 60 MG PO (17:42)
[2023-10-30 17:44] LABS: COVID-19 Test Negative (Negative); IDNOW Serial# 58CA691E
[2023-10-30 17:46] LABS: IDNOW Serial# 9DB6401D; Influenza A Negative (Negative); Influenza B2 Negative (Negative)
== END 2023-10-30 18:23 | disposition home or self-care (01) ==
PROVIDERS: Nurse Practitioner Family; Emergency Provider Student in an Organized Health Care Education/Training Program
DX: J45.901 Unspecified asthma with (acute) exacerbation (principal); Z11.52 Encounter for screening for COVID-19; F17.200 Nicotine dependence, unspecified, uncomplicated; F12.90 Cannabis use, unspecified, uncomplicated
CPT/HCPCS: 87502; 87635; 94640; 99283; 99284

== ENCOUNTER 2024-01-21 21:48 | Emergency (ER) | payer MEDICAID, SELFPAY ==
[2024-01-21 22:32] VITALS: BP 141/100; PULSE 104; RESP 16; TEMP 36.9; O2SAT 98; BMI 28.2
--- NOTE | 2024-01-21 22:48 | MHC.EDTECH ---
Patient brought to triage area,labs, sars/flu/rsv obtained and sent to lab.
[2024-01-21 22:53] LABS: MANUAL DIFF FLAG NO
[2024-01-21 22:55] LABS: Basophils Absolute Auto 0.1 X10*3/uL (0.0-0.2); Basophils Percent Auto 0.6 % (0-2); Eosinophils Absolute Auto 0.3 X10*3/uL (0.0-0.4); Eosinophils Percent Auto 1.8 % (0-4); Hematocrit 49.1 % (42.0-52.0); Hemoglobin 16.8 g/dl (14.0-18.0); Imm Gran Abs Auto 0.07 X10*3/uL (0.00-0.03); Imm Gran Pct Auto 0.5 % (0.0-0.4); Lymphocytes Absolute Auto 3.3 X10*3/uL (1.2-4.9); Lymphocytes Percent Auto 24.3 % (20-40); Mean Corpuscular HGB Conc 34.2 g/dl (31.0-36.0); Mean Corpuscular Hemoglobin 30.1 pg (27.0-33.0); Mean Corpuscular Volume 87.8 fL (80.0-98.0); Mean Platelet Volume 8.6 fL (9.4-12.4); Monocytes Absolute Auto 1.2 X10*3/uL (0.1-1.2); Monocytes Percent Auto 8.5 % (2-11); Neutrophils Absolute Auto 8.7 x10*3/uL (2.0-8.3); Neutrophils Percent Auto 64.3 % (45-73); Platelet Count 345 X10*3/uL (160-400); Red Blood Count 5.59 X10*6/uL (4.60-5.80); Red Cell Distribution Width 13.4 % (11.0-16.0); White Blood Count 13.6 X10*3/uL (4.8-10.8)
[2024-01-21 23:09] LABS: Alanine Aminotransferase 33 U/L (0-40); Albumin Level 4.7 g/dL (3.5-5.0); Alkaline Phosphatase 75 U/L (39-117); Anion Gap 15 (12-20); Aspartate Amino Transferase 26 U/L (5-37); Bilirubin Total 0.7 mg/dL (0.0-1.0); Blood Urea Nitrogen 15 mg/dL (9-16); Calcium 10.5 mg/dL (8.4-10.2); Carbon Dioxide 24 mmol/L (22-29); Chloride 105 mmol/L (96-108); Creatinine Clr Calc Pharmacy 98.5; Estimated Glomerular Filt Rate > 60; Glucose Random 102 mg/dL (60-115); Lipase 21 U/L (8-78); Potassium 4.1 mmol/L (3.3-5.1); Sodium 140 mmol/L (135-145); Total Protein 8.4 g/dL (6.5-8.0)
[2024-01-21 23:34] LABS: Influenza A PCR NEGATIVE (Negative); Influenza B PCR NEGATIVE (Negative); Resp Syncy Virus RNA Qual PCR NEGATIVE (Negative); SARS COV2 PCR INHOUSE NEGATIVE (Negative)
[2024-01-22 00:35] VITALS: BP 124/69; PULSE 100; RESP 18; TEMP 37.2; O2SAT 99
[2024-01-22 04:10] VITALS: BP 129/75; PULSE 86; RESP 14; TEMP 36.6; O2SAT 98
--- NOTE | 2024-01-22 05:06 | ED_ITS ---
HPI - Nausea/Vomiting/Diarrhea General Chief complaint: Abdominal Pain Stated complaint: flu symptoms Time Seen by Provider: 01/22/24 04:54 Source: patient Mode of arrival: ambulatory Limitations: no limitations History of Present Illness HPI Narrative: 33-year-old male history of as who presents emergency department for evaluation of nausea, vomiting, diarrhea and abdominal pain x3 days. Patient points to his epigastric area and describes his pain as a burning sensation similar to acid reflux. He states he has had 3 soft stools per day and 3 episodes of emesis per day. He denied any blood in the stool or emesis. He states he is feeling weak and fatigued . He was not able to go to work for 2 days secondary to his symptoms. He states that his 8-year-old stepdaughter has had similar symptoms. States he has had very little food and fluid intake over the past several days. Denied fever but did have chills. He denied rhinorrhea, sore throat, cough, chest pain. Patient states that he does feel short of breath but he attributes this to his asthma and the fact that there is a cat in the house he is allergic to cats. He denied urinary frequency or dysuria Related Data Previous Rx's Medication Instructions Recorded amoxicillin 500 mg capsule 500 mg PO TID 10 days #30 caps 10/01/21 naproxen 500 mg tablet 500 mg PO BID PRN pain #20 tabs 10/01/21 amoxicillin 500 mg capsule 500 mg PO TID 7 days #21 caps 05/12/22 ibuprofen 600 mg tablet 600 mg PO Q6H PRN pain #30 tabs 05/12/22 ofloxacin 0.3 % ear drops 10 drp otic (ears) DAILY 7 days #5 05/12/22 mL amoxicillin 500 mg tablet 500 mg PO Q8H #21 tabs 10/17/23 ibuprofen 600 mg tablet 600 mg PO Q6H PRN pain #20 tabs 10/17/23 albuterol sulfate 2.5 mg/3 mL 2.5 mg (3 mL) inhalation Q4H PRN 10/30/23 (0.083 %) solution for nebulization shortness of breath or wheezing #90 mL albuterol sulfate 90 mcg/actuation 2 puff inhalation Q4-6H PRN 10/30/23 aerosol inhaler shortness of breath or wheezing #8.5 grams nicotine 14 mg/24 hr daily 1 patch transdermal DAILY #14 ea 10/30/23 transdermal patch prednisone 20 mg tablet 40 mg (2 x 20 mg) PO DAILY #8 tabs 10/30/23 loperamide 2 mg tablet (Imodium 2 mg PO Q4H PRN loose stool #20 01/22/24 A-D) tabs omeprazole 20 mg capsule,delayed 20 mg PO DAILY 30 days #30 caps 01/22/24 release ondansetron 4 mg disintegrating 4 mg PO Q6-8H PRN nausea and 01/22/24 tablet vomiting #14 tabs Allergies Allergy/AdvReac Type Severity Reaction Status Date / Time No Known Allergies Allergy Verified 10/30/23 17:07 Review of Systems 2 Review of Systems: Yes all other systems are reviewed and are negative [facility] Past Medical History [facility] Narrative: Past medical history: Asthma. Social history: He does smoke cigarettes per day occasionally drinks alcohol. He does smoke marijuana Medical History Asthma Asthma action plan declined Social History Social History Patient Tobacco Use Status: Current everyday Tobacco user Smoked in Last 30 Days: No Substance Use Type: Marijuana Advance Directives: No Advance Directives Information Provided: Yes Physical Exam 2 Vital Signs: Vital Signs: Last Vital Signs Temp 97.8 F 01/22/24 04:10 Pulse 86 01/22/24 04:10 Resp 14 01/22/24 04:10 BP 129/75 01/22/24 04:10 Pulse Ox 98 01/22/24 04:10 O2 Del Method Room Air 01/22/24 04:10 BMI result Body Mass Index 28.2 Vital signs were normal Exam: General: Awake, alert in no distress Head: Normocephalic, atraumatic EENT: PERRL, Lids normal, sclera normal, conjunctiva normal, nose normal , ears normal, throat without erythema or exudates Neck: Supple, no adenopathy Lung: breath sounds symmetric, no wheezing, rales or rhonchi Chest: symmetric movement, nontender Heart: regular rate and rhythm, normal S1, S2 no murmurs or rubs Abdomen: soft, mild epigastric tender, nondistended, normal bowel sounds Back: no vertebral tenderness, no CVAT Extremities: no deformities, moves all extremities symmetrically Neuro: Awake, alert, oriented, normal speech, cranial nerves intact, moves all extremities symmetrically Psych: Pleasant, cooperative Medical Decision Making Medical Decision Making [facility] Narrative: 33-year-old male history of as who presents emergency department for evaluation of nausea, vomiting, diarrhea and abdominal pain x3 days. Vital signs revealed an elevated heart rate of 104 and elevated blood pressure of 141/100-he is improved without any treatment. Physical exam did reveal epigastric tenderness otherwise was unremarkable. Differential diagnosis: Includes was not limited to viral syndrome, COVID-19, influenza, RSV, gastritis, electrolyte abnormalities, anemia Patient was treated with the following: Zofran 4 mg ODT 05:18 My interpretation patient's laboratory evaluation is as follows: WBC elevated 13,600. H&H was normal. CMP was normal. Lipase was negative. COVID-19, influenza and RSV were negative. Patient's presentation is consistent with acute viral syndrome. Patient was prescribed Zofran 4 mg ODT Q 6 hours as needed for nausea and vomiting, Imodium as directed, omeprazole 20 mg once a day for 1 month. Patient was given printed and verbal instructions and discharged home. Patient was also given a work note Admission/Observation Consideration of admission/observation: Escalation of care including admission/observation considered Lab Data [facility] Lab Attestation statement: I reviewed the patient's lab results. 01/21/24 22:47 01/21/24 22:47 Labs: Lab Results 01/21/24 Range/Units 22:47 WBC 13.6 H (4.8-10.8) X10*3/uL RBC 5.59 (4.60-5.80) X10*6/uL Hgb 16.8 (14.0-18.0) g/dl Hct 49.1 (42.0-52.0) % MCV 87.8 (80.0-98.0) fL MCH 30.1 (27.0-33.0) pg MCHC 34.2 (31.0-36.0) g/dl RDW 13.4 (11.0-16.0) % Plt Count 345 (160-400) X10*3/uL MPV 8.6 L (9.4-12.4) fL Immature Gran % (Auto) 0.5 H (0.0-0.4) % Neut % (Auto) 64.3 (45-73) % Lymph % (Auto) 24.3 (20-40) % [place] % (Auto) 8.5 (2-11) % Eos % (Auto) 1.8 (0-4) % Baso % (Auto) 0.6 (0-2) % Lymph # (Auto) 3.3 (1.2-4.9) X10*3/uL [place] # (Auto) 1.2 (0.1-1.2) X10*3/uL Eos # (Auto) 0.3 (0.0-0.4) X10*3/uL Baso # (Auto) 0.1 (0.0-0.2) X10*3/uL Abs Immat Gran (auto) 0.07 H (0.00-0.03) X10*3/uL Absolute Neuts (auto) 8.7 H (2.0-8.3) x10*3/uL Absolute Nucleated RBC 0.000 (0.0-0.012) X10*3/uL Nucleated RBC % (auto) 0.0 (0.0-0.2) /100WBC Sodium 140 (135-145) mmol/L Potassium 4.1 (3.3-5.1) mmol/L Chloride 105 (96-108) mmol/L Carbon Dioxide 24 (22-29) mmol/L Anion Gap 15 (12-20) BUN 15 (9-16) mg/dL Creatinine 1.10 (0.5-1.4) mg/dL Estim Creat Clear Calc 98.5 Estimated GFR > 60 Random Glucose 102 (60-115) mg/dL Calcium 10.5 H (8.4-10.2) mg/dL Total Bilirubin 0.7 (0.0-1.0) mg/dL AST 26 (5-37) U/L ALT 33 (0-40) U/L Alkaline Phosphatase 75 (39-117) U/L Total Protein 8.4 H (6.5-8.0) g/dL Albumin 4.7 (3.5-5.0) g/dL Lipase 21 (8-78) U/L Influenza Type A (PCR) NEGATIVE (Negative) Influenza Type B (PCR) NEGATIVE (Negative) RSV RNA Qual (PCR) NEGATIVE (Negative) SARS-CoV-2 RNA (RT-PCR) NEGATIVE (Negative) Prescription Management I considered prescription management with: Other (Antiemetics-Zofran, H2 [place]-Prilosec, anti diuretic-Imodium) Chronic Conditions Patient?s care impacted by: Other Asthma Discharge Plan Discharge Clinical Impression: Viral syndrome Nausea & vomiting Qualifiers: Vomiting type: unspecified Qualified Code(s): R11.2 - Nausea with vomiting, unspecified Diarrhea Qualifiers: Diarrhea type: unspecified type Qualified Code(s): R19.7 - Diarrhea, unspecified Gastritis Qualifiers: Gastritis type: unspecified gastritis Chronicity: acute Gastritis bleeding: w ithout bleeding Qualified Code(s): K29.00 - Acute gastritis without bleeding Patient Disposition: Home, Self-Care Instructions: Viral Syndrome (ED) Additional Instructions: Your blood work was normal Your COVID-19, influenza and RSV tests were negative Your symptoms are consistent with a viral infection which is causing inflammation of your stomach, nausea, vomiting and diarrhea. Take Prilosec (omeprazole) 20 mg pills, 1 pill once a day for 1 month. ?This medication shuts off your acid production and lets the inflammation in your stomach and esophagus heal. Take Zofran ODT 4 mg pills, 1 pill dissolved in your mouth every 8 hours as needed for nausea and vomiting. For diarrhea I want you to take Imodium 2 mg pills. ?Take 2 pills after the 1st loose, diarrheal stool then 1 pill after each loose, diarrheal stool up to 8 pills per day. ?This usually stops diarrhea within 24 hours. For the next 24 hours, stay on a SLIM diet (bananas, rice, applesauce, tea and toast). Follow-up with your doctor in 2 days. Please return to the emergency department if your symptoms get worse or if you develop any symptoms that are concerning to you. Please see work note Prescriptions: New loperamide [Imodium A-D] 2 mg tablet 2 mg PO Q4H PRN (Reason: loose stool) Qty: 20 0RF omeprazole 20 mg capsule,delayed release(DR/EC) 20 mg PO DAILY 30 Days Qty: 30 0RF ondansetron 4 mg tablet,disintegrating 4 mg PO Q6-8H PRN (Reason: nausea and vomiting) Qty: 14 0RF No Action amoxicillin 500 mg capsule 500 mg PO TID 7 Days Qty: 21 0RF ofloxacin 0.3 % drops 10 drp otic (ears) DAILY 7 Days Qty: 5 0RF ibuprofen 600 mg tablet 600 mg PO Q6H PRN (Reason: pain) Qty: 30 0RF amoxicillin 500 mg capsule 500 mg PO TID 10 Days Qty: 30 0RF naproxen 500 mg tablet 500 mg PO BID PRN (Reason: pain) Qty: 20 0RF prednisone 20 mg tablet 40 mg PO DAILY Qty: 8 0RF albuterol sulfate 90 mcg/actuation HFA aerosol inhaler 2 puff inhalation Q4-6H PRN (Reason: shortness of breath or wheezing) Qty: 8.5 0RF albuterol sulfate 2.5 mg /3 mL (0.083 %) solution for nebulization 2.5 mg inhalation Q4H PRN (Reason: shortness of breath or wheezing) Qty: 90 0RF nicotine 14 mg/24 hr patch 24 hour 1 patch transdermal DAILY Qty: 14 0RF ibuprofen 600 mg tablet 600 mg PO Q6H PRN (Reason: pain) Qty: 20 0RF amoxicillin 500 mg tablet 500 mg PO Q8H Qty: 21 0RF Stand Alone Forms: Work/School Release
[2024-01-22] MEDS: Ondansetron ODT 4 MG TAB.RAPDIS TRANSLINGU (05:17)
== END 2024-01-22 05:18 | disposition home or self-care (01) ==
PROVIDERS: Emergency Provider Emergency Medicine Emergency Medical Services
DX: K29.00 Acute gastritis without bleeding (principal); R19.7 Diarrhea, unspecified; R11.2 Nausea with vomiting, unspecified; B34.9 Viral infection, unspecified; R10.13 Epigastric pain; Z11.52 Encounter for screening for COVID-19; Z20.828 Contact with and (suspected) exposure to other viral communicable diseases
CPT/HCPCS: 0241U; 36415; 80053; 83690; 85025; 99283; 99284

== ENCOUNTER 2024-03-02 21:09 | Emergency (ER) | payer MEDICAID, SELFPAY ==
[2024-03-02 21:22] VITALS: BP 135/94; PULSE 100; RESP 18; TEMP 36.9; O2SAT 97; BMI 30.1
[2024-03-02 21:45] LABS: IDNOW Serial# 58CA691E; Strep A Nucleic Acid Positive (Negative)
[2024-03-02 22:19] LABS: Influenza A PCR NEGATIVE (Negative); Influenza B PCR NEGATIVE (Negative); Resp Syncy Virus RNA Qual PCR NEGATIVE (Negative); SARS COV2 PCR INHOUSE NEGATIVE (Negative)
--- NOTE | 2024-03-02 23:04 | ED_ITS ---
HPI - URI/Sore Throat General Chief Complaint: Upper Respiratory Symptoms Stated Complaint: sore throat Time Seen by Provider: 03/02/24 23:04 Source: patient Mode of arrival: ambulatory Limitations: no limitations History of Present Illness HPI Narrative: Patient has been having sore throat for last 3 days kids positive for strep throat no fever has painful to swallow occasional dry cough Related Data Previous Rx's ?Medication ?Instructions ?Recorded amoxicillin 500 mg capsule 500 mg PO TID 10 days #30 caps 10/01/21 naproxen 500 mg tablet 500 mg PO BID PRN pain #20 tabs 10/01/21 amoxicillin 500 mg capsule 500 mg PO TID 7 days #21 caps 05/12/22 ibuprofen 600 mg tablet 600 mg PO Q6H PRN pain #30 tabs 05/12/22 ofloxacin 0.3 % ear drops 10 drp otic (ears) DAILY 7 days #5 05/12/22 mL amoxicillin 500 mg tablet 500 mg PO Q8H #21 tabs 10/17/23 ibuprofen 600 mg tablet 600 mg PO Q6H PRN pain #20 tabs 10/17/23 albuterol sulfate 2.5 mg/3 mL 2.5 mg (3 mL) inhalation Q4H PRN 10/30/23 (0.083 %) solution for nebulization shortness of breath or wheezing #90 mL albuterol sulfate 90 mcg/actuation 2 puff inhalation Q4-6H PRN 10/30/23 aerosol inhaler shortness of breath or wheezing #8.5 grams nicotine 14 mg/24 hr daily 1 patch transdermal DAILY #14 ea 10/30/23 transdermal patch prednisone 20 mg tablet 40 mg (2 x 20 mg) PO DAILY #8 tabs 10/30/23 loperamide 2 mg tablet (Imodium 2 mg PO Q4H PRN loose stool #20 01/22/24 A-D) tabs omeprazole 20 mg capsule,delayed 20 mg PO DAILY 30 days #30 caps 01/22/24 release ondansetron 4 mg disintegrating 4 mg PO Q6-8H PRN nausea and 01/22/24 tablet vomiting #14 tabs amoxicillin 875 mg-potassium 1 tab PO BID #20 tabs 03/02/24 clavulanate 125 mg tablet ibuprofen 600 mg tablet 600 mg PO Q6H PRN fever or pain 03/02/24 #30 tabs Allergies Allergy/AdvReac Type Severity Reaction Status Date / Time No Known Allergies Allergy Verified 03/02/24 21:24 Review of Systems Review of Systems: Yes all other systems are reviewed and are negative [facility] Past Medical History Medical History Asthma Asthma action plan declined Social History Social History Alcohol intake: never Patient Tobacco Use Status: Current everyday Tobacco user Smoked in Last 30 Days: Yes Use of substances other than those prescribed or required for medical reasons: No Substance Use Type: Marijuana Advance Directives: No Advance Directives Information Provided: No Physical Exam Vital Signs: Vital Signs: Last Vital Signs Temp 98.3 F 03/02/24 23:39 Pulse 96 03/02/24 23:39 Resp 17 03/02/24 23:39 BP 138/89 03/02/24 23:39 Pulse Ox 97 03/02/24 23:39 O2 Del Method Room Air 03/02/24 23:39 BMI result Body Mass Index 30.1 Appearance: Alert. Oriented X3. No acute distress. ENT: Pharynx erythematous++ no exudates Oral Mucosa moist Neck: Normal inspection. Neck supple. CVS: Normal heart rate and rhythm. Pulses normal. Respiratory: No respiratory distress. Equal air entry bilateral, no wheezing/rales/rhonchi Skin: Skin warm and dry. Normal skin color. Normal skin turgor. Neuro: Oriented X 3. Medications Administered Discontinued Medications Generic Name Dose Route Start Last Admin Trade Name Freq PRN Reason Stop Dose Admin Amoxicillin/Clavulanate Potassium 875 mg 03/02/24 23:05 03/02/24 23:32 Amoxicillin/Potassium Clav 875 Mg Tablet PO 03/02/24 23:06 875 mg ONCE ONE Administration Medical Decision Making Medical Decision Making MDM Narrative: Patient has acute pharyngitis strep positive prescribed Augmentin Lab Data MDM Lab Attestation statement: I reviewed the patient's lab results. Labs: Lab Results 03/02/24 Range/Units 21:28 Influenza Type A (PCR) NEGATIVE (Negative) Influenza Type B (PCR) NEGATIVE (Negative) RSV RNA Qual (PCR) NEGATIVE (Negative) SARS-CoV-2 RNA (RT-PCR) NEGATIVE (Negative) S. pyogenes GrpA SHONNA Positive A (Negative) Discharge Plan Discharge Clinical Impression: Acute streptococcal pharyngitis Patient Disposition: Home, Self-Care Instructions: Strep Throat (ED) Additional Instructions: Drink plenty of fluid Take antibiotic as prescribed Tylenol Motrin for fever/pain Follow with PCP if not better Prescriptions: New ibuprofen 600 mg tablet 600 mg PO Q6H PRN (Reason: fever or pain) Qty: 30 0RF amoxicillin-pot clavulanate 875-125 mg tablet 1 tab PO BID Qty: 20 0RF No Action amoxicillin 500 mg capsule 500 mg PO TID 7 Days Qty: 21 0RF ofloxacin 0.3 % drops 10 drp otic (ears) DAILY 7 Days Qty: 5 0RF ibuprofen 600 mg tablet 600 mg PO Q6H PRN (Reason: pain) Qty: 30 0RF amoxicillin 500 mg capsule 500 mg PO TID 10 Days Qty: 30 0RF naproxen 500 mg tablet 500 mg PO BID PRN (Reason: pain) Qty: 20 0RF prednisone 20 mg tablet 40 mg PO DAILY Qty: 8 0RF albuterol sulfate 90 mcg/actuation HFA aerosol inhaler 2 puff inhalation Q4-6H PRN (Reason: shortness of breath or wheezing) Qty: 8.5 0RF albuterol sulfate 2.5 mg /3 mL (0.083 %) solution for nebulization 2.5 mg inhalation Q4H PRN (Reason: shortness of breath or wheezing) Qty: 90 0RF nicotine 14 mg/24 hr patch 24 hour 1 patch transdermal DAILY Qty: 14 0RF ibuprofen 600 mg tablet 600 mg PO Q6H PRN (Reason: pain) Qty: 20 0RF amoxicillin 500 mg tablet 500 mg PO Q8H Qty: 21 0RF loperamide [Imodium A-D] 2 mg tablet 2 mg PO Q4H PRN (Reason: loose stool) Qty: 20 0RF omeprazole 20 mg capsule,delayed release(DR/EC) 20 mg PO DAILY 30 Days Qty: 30 0RF ondansetron 4 mg tablet,disintegrating 4 mg PO Q6-8H PRN (Reason: nausea and vomiting) Qty: 14 0RF Stand Alone Forms: Work/School Release Interventions: ED Discharge Assessment Last Done: 03/02/24 23:39 Discharge Date/Time: 03/02/24 23:42 Print Language: Togolese
[2024-03-02 23:20] VITALS: BP 138/89; PULSE 96; RESP 17; TEMP 36.8; O2SAT 97
[2024-03-02] MEDS: Amoxicillin/Potassium Clav 875 MG TABLET PO (23:32)
[2024-03-02 23:39] VITALS: BP 138/89; PULSE 96; RESP 17; TEMP 36.8; O2SAT 97
== END 2024-03-02 23:42 | disposition home or self-care (01) ==
PROVIDERS: Emergency Provider Internal Medicine
DX: J02.9 Acute pharyngitis, unspecified (principal); Z11.52 Encounter for screening for COVID-19; Z20.822 Contact with and (suspected) exposure to COVID-19
CPT/HCPCS: 0241U; 87651; 99283; 99284

== ENCOUNTER 2024-09-15 13:26 | Emergency (ER) | payer MEDICAID, SELFPAY ==
--- NOTE | ~2024-09-15 | US_ITS ---
EXAMINATION: US SCROTUM CLINICAL INFORMATION: Left testicular pain. COMPARISON: Scrotal ultrasound 09/12/2019. TECHNIQUE: A sonogram of the scrotum was performed assessing mckeon-scale appearance and color Doppler flow. Spectral Doppler analysis of the arterial and venous flow were performed in the testes bilaterally. FINDINGS: RIGHT: Right testicle measures 3.7 x 1.9 x 2.7 cm, volume 10 mL. No focal testicular parenchymal lesions are visualized. Spectral Doppler analysis of the arterial and venous flow is normal in the right testis. Right epididymal head is normal in size. Simple appearing 0.4 cm epididymal head cyst. No right hydrocele or varicocele is seen. Right epididymal Doppler flow is normal. LEFT: Left testicle measures 3.6 x 2.5 x 2.9 cm, volume 13 mL. No focal testicular parenchymal lesions are visualized. Spectral Doppler analysis of the arterial and venous flow is increased in the left testis. Left epididymis is increase in size and demonstrates increased flow on color Doppler. Simple appearing epididymal head cyst measuring 0.4 cm. Small hydrocele. Large varicocele. Soft tissue stranding and hyperemia is noted adjacent to the left testicle and left epididymis. US/US scrotum IMPRESSION: Marked asymmetric hyperemia of the left testicle and left epididymis with asymmetric enlargement of the left epididymis and significant surrounding inflammatory changes concerning for acute epididymoorchitis in the appropriate clinical context. Small left hydrocele. Large left varicocele. Electronically signed by: Sabiha Ryan MD 09/15/2024 05:03 PM EDT
--- NOTE | ~2024-09-15 | US_ITS ---
EXAMINATION: US SCROTUM CLINICAL INFORMATION: Left testicular pain. COMPARISON: Scrotal ultrasound 09/12/2019. TECHNIQUE: A sonogram of the scrotum was performed assessing mckeon-scale appearance and color Doppler flow. Spectral Doppler analysis of the arterial and venous flow were performed in the testes bilaterally. FINDINGS: RIGHT: Right testicle measures 3.7 x 1.9 x 2.7 cm, volume 10 mL. No focal testicular parenchymal lesions are visualized. Spectral Doppler analysis of the arterial and venous flow is normal in the right testis. Right epididymal head is normal in size. Simple appearing 0.4 cm epididymal head cyst. No right hydrocele or varicocele is seen. Right epididymal Doppler flow is normal. LEFT: Left testicle measures 3.6 x 2.5 x 2.9 cm, volume 13 mL. No focal testicular parenchymal lesions are visualized. Spectral Doppler analysis of the arterial and venous flow is increased in the left testis. Left epididymis is increase in size and demonstrates increased flow on color Doppler. Simple appearing epididymal head cyst measuring 0.4 cm. Small hydrocele. Large varicocele. Soft tissue stranding and hyperemia is noted adjacent to the left testicle and left epididymis. US/US scrotum doppler IMPRESSION: Marked asymmetric hyperemia of the left testicle and left epididymis with asymmetric enlargement of the left epididymis and significant surrounding inflammatory changes concerning for acute epididymoorchitis in the appropriate clinical context. Small left hydrocele. Large left varicocele. Electronically signed by: Sabiha Ryan MD 09/15/2024 05:03 PM EDT
--- NOTE | 2024-09-15 13:30 | ED.GENADULT ---
HPI - General Adult General Chief complaint: Urogenital-Male Stated complaint: swollen private ? pain going into abd Time Seen by Provider: 09/15/24 14:36 Source: patient Mode of arrival: ambulatory Limitations: no limitations History of Present Illness ED Provider: delores DEL VALLE narrative: Patient otherwise healthy comes here for pain in the left testicle for last 1 week with increased swelling no history of STI no history of anal intercourse no history of HIV no penile discharge Related Data Previous Rx's ?Medication ?Instructions ?Recorded amoxicillin 500 mg capsule 500 mg PO TID 10 days #30 caps 10/01/21 naproxen 500 mg tablet 500 mg PO BID PRN pain #20 tabs 10/01/21 amoxicillin 500 mg capsule 500 mg PO TID 7 days #21 caps 05/12/22 ibuprofen 600 mg tablet 600 mg PO Q6H PRN pain #30 tabs 05/12/22 ofloxacin 0.3 % ear drops 10 drp otic (ears) DAILY 7 days #5 05/12/22 mL amoxicillin 500 mg tablet 500 mg PO Q8H #21 tabs 10/17/23 ibuprofen 600 mg tablet 600 mg PO Q6H PRN pain #20 tabs 10/17/23 albuterol sulfate 2.5 mg/3 mL 2.5 mg (3 mL) inhalation Q4H PRN 10/30/23 (0.083 %) solution for nebulization shortness of breath or wheezing #90 mL albuterol sulfate 90 mcg/actuation 2 puff inhalation Q4-6H PRN 10/30/23 aerosol inhaler shortness of breath or wheezing #8.5 grams nicotine 14 mg/24 hr daily 1 patch transdermal DAILY #14 ea 10/30/23 transdermal patch prednisone 20 mg tablet 40 mg (2 x 20 mg) PO DAILY #8 tabs 10/30/23 loperamide 2 mg tablet (Imodium 2 mg PO Q4H PRN loose stool #20 01/22/24 A-D) tabs omeprazole 20 mg capsule,delayed 20 mg PO DAILY 30 days #30 caps 01/22/24 release ondansetron 4 mg disintegrating 4 mg PO Q6-8H PRN nausea and 01/22/24 tablet vomiting #14 tabs amoxicillin 875 mg-potassium 1 tab PO BID #20 tabs 03/02/24 clavulanate 125 mg tablet ibuprofen 600 mg tablet 600 mg PO Q6H PRN fever or pain 03/02/24 #30 tabs doxycycline hyclate 100 mg tablet 100 mg PO BID #20 tabs 09/15/24 ibuprofen 600 mg tablet 600 mg PO Q6H PRN fever or pain 09/15/24 #30 tabs levofloxacin 500 mg tablet 500 mg PO DAILY 10 days #10 tabs 09/15/24 Allergies Allergy/AdvReac Type Severity Reaction Status Date / Time No Known Allergies Allergy Verified 09/15/24 13:33 Review of Systems Review of Systems: Yes all other systems are reviewed and are negative [facility] Past Medical History Medical History Asthma Asthma action plan declined Social History Social History Alcohol intake: never Patient Tobacco Use Status: Current everyday Tobacco user Substance Use Type: Marijuana Advance Directives: No Advance Directives Information Provided: Yes Do you have a plan to hurt others: No Plan Physical Exam ED Vital Signs: Vital Signs - 24 hr 09/15/24 13:31 09/15/24 14:31 Temperature 98.3 F 98.7 F Pulse Rate 74 81 Respiratory Rate 18 16 Blood Pressure 128/84 121/65 Pulse Oximetry 99 98 Oxygen Delivery Method Room Air Room Air BMI result Body Mass Index 26.5 Appearance: Alert. Oriented X3. No acute distress. ENT: Pharynx normal. Oral Mucosa moist Neck: Normal inspection. Neck supple. CVS: Normal heart rate and rhythm. Pulses normal. Respiratory: No respiratory distress. Equal air entry bilateral, Abdomen: Soft and nontender. Bowel sounds are present, no mass palpable, no CVA tenderness : Enlarged testicle and epididymis left side with tenderness no skin induration no penile discharge right testicle normal Skin: Skin warm and dry. Normal skin color. Normal skin turgor. Neuro: Oriented X 3. Course Course Course Narrative: This is a rapid medical exam performed by Juanito Lowry NP: Additional HPI, ROS, PE not included below will be deferred to primary provider. Patient is a 34-year-old male with history of asthma presenting to the ED with complaint of left testicular pain for the past week. Took some penicillin at home. Pain radiating down left leg. Denies difficulty urinating. Plan: CT NG, UA, U/S Medications Administered Discontinued Medications Generic Name Dose Route Start Last Admin Trade Name Tyrone PRN Reason Stop Dose Admin Ceftriaxone Sodium 500 mg/ 0 mg 09/15/24 14:46 09/15/24 15:08 Lidocaine HCl 1 ml IM 09/15/24 14:47 1 kit ONCE ONE Administration Doxycycline Monohydrate 100 mg 09/15/24 14:46 09/15/24 15:08 Doxycycline Monohydrate 100 Mg Capsule PO 09/15/24 14:47 100 mg ONCE ONE Administration Ibuprofen 600 mg 09/15/24 14:46 09/15/24 15:08 Ibuprofen 600 Mg Tablet PO 09/15/24 14:47 600 mg ONCE ONE Administration Levofloxacin 500 mg 09/15/24 15:00 09/15/24 15:08 Levofloxacin 500 Mg Tablet PO 09/15/24 15:01 500 mg ONCE ONE Administration Medical Decision Making Medical Decision Making MDM Narrative: Patient's left epididymo-orchitis will prescribe Levaquin and doxycycline was given Rocephin in the ER Lab Data MDM Lab Attestation statement: I reviewed the patient's lab results. Labs: Lab Results 09/15/24 Range/Units 13:43 Urine Color Yellow Urine Appearance Clear Urine pH 7.0 (5.0-9.0) Ur Specific Mccrory 1.025 (1.005-1.025) Urine Protein Negative (Neg-Trace) mg/dL Urine Glucose (UA) Negative (Negative) mg/dL Urine Ketones Trace (Negative) mg/dL Urine Blood Negative (Negative) Urine Nitrite Negative (Negative) Ur Leukocyte Esterase Small (1+) H (Negative) Urine RBC 0-2 (0-2) /HPF Urine WBC 21-50 H (0-5) /HPF Ur Squamous Epith Cells 0-2 (0-2) /HPF Urine Bacteria None Seen (None Seen) Hyaline Casts 0-2 (0-2) /LPF Independent Interpretation I performed an independent interpretation of an: Ultrasound Radiology Impression Discussion of test interpretation with radiology: I have reviewed the radiologist's reading. Discharge Plan Discharge Clinical Impression: Epididymitis, left Patient Disposition: Home, Self-Care Instructions: Epididymo-Orchitis (ED) Additional Instructions: Scrotal support as advised Take antibiotics as prescribed Follow with urologist if not better Prescriptions: New doxycycline hyclate 100 mg tablet 100 mg PO BID Qty: 20 0RF levofloxacin 500 mg tablet 500 mg PO DAILY 10 Days Qty: 10 0RF ibuprofen 600 mg tablet 600 mg PO Q6H PRN (Reason: fever or pain) Qty: 30 0RF No Action amoxicillin 500 mg capsule 500 mg PO TID 7 Days Qty: 21 0RF ofloxacin 0.3 % drops 10 drp otic (ears) DAILY 7 Days Qty: 5 0RF ibuprofen 600 mg tablet 600 mg PO Q6H PRN (Reason: pain) Qty: 30 0RF amoxicillin 500 mg capsule 500 mg PO TID 10 Days Qty: 30 0RF naproxen 500 mg tablet 500 mg PO BID PRN (Reason: pain) Qty: 20 0RF prednisone 20 mg tablet 40 mg PO DAILY Qty: 8 0RF albuterol sulfate 90 mcg/actuation HFA aerosol inhaler 2 puff inhalation Q4-6H PRN (Reason: shortness of breath or wheezing) Qty: 8.5 0RF albuterol sulfate 2.5 mg /3 mL (0.083 %) solution for nebulization 2.5 mg inhalation Q4H PRN (Reason: shortness of breath or wheezing) Qty: 90 0RF nicotine 14 mg/24 hr patch 24 hour 1 patch transdermal DAILY Qty: 14 0RF ibuprofen 600 mg tablet 600 mg PO Q6H PRN (Reason: pain) Qty: 20 0RF amoxicillin 500 mg tablet 500 mg PO Q8H Qty: 21 0RF loperamide [Imodium A-D] 2 mg tablet 2 mg PO Q4H PRN (Reason: loose stool) Qty: 20 0RF omeprazole 20 mg capsule,delayed release(DR/EC) 20 mg PO DAILY 30 Days Qty: 30 0RF ondansetron 4 mg tablet,disintegrating 4 mg PO Q6-8H PRN (Reason: nausea and vomiting) Qty: 14 0RF ibuprofen 600 mg tablet 600 mg PO Q6H PRN (Reason: fever or pain) Qty: 30 0RF amoxicillin-pot clavulanate 875-125 mg tablet 1 tab PO BID Qty: 20 0RF Referrals: Kaleb Sidhu MD [Physician] - 1 week Print Language: Mongolian
[2024-09-15 13:31] VITALS: BP 128/84; PULSE 74; RESP 18; TEMP 36.8; O2SAT 99; BMI 26.5
[2024-09-15 14:06] LABS: Appearance Urine Clear; Color Urine Yellow; Glucose Urine UA Negative (Negative); Leukocyte Esterase Urine Small (1+) (Negative); Nitrite Urine Negative (Negative); Specific Gravity - Urine 1.025 (1.005-1.025); UMIC TRIGGER UACC YES; Urine Blood Negative (Negative); Urine Ketones Trace mg/dL (Negative); Urine Protein Negative (Neg-Trace)
[2024-09-15 14:08] LABS: Bacteria Urine None Seen (None Seen); Hyaline Casts Urine 0-2 /LPF (0-2); RBC Urine 0-2 /HPF (0-2); Squamous Epithelial Cell Urine 0-2 /HPF (0-2); UACC Culture Trigger YES; WBC Urine 21-50 /HPF (0-5)
[2024-09-15 14:31] VITALS: BP 121/65; PULSE 81; RESP 16; TEMP 37.1; O2SAT 98
[2024-09-15] MEDS: cefTRIAXone sodium 500 MG, Lidocaine HCl 1 % MPF 1 ML IM (15:08)
[2024-09-15] MEDS: levoFLOXacin 500 MG TABLET PO (15:08)
[2024-09-15] MEDS: Doxycycline Monohydrate 100 MG CAPSULE PO (15:08)
[2024-09-15] MEDS: Ibuprofen 600 MG TABLET PO (15:08)
[2024-09-15 15:46] LABS: CT PCR NOT DETECTED (Not Detect.); NG PCR NOT DETECTED (Not Detect.)
[2024-09-15 15:48] VITALS: BP 119/79; PULSE 79; RESP 16; TEMP 36.9; O2SAT 98
== END 2024-09-15 15:50 | disposition home or self-care (01) ==
PROVIDERS: Registered Nurse Emergency; Emergency Provider Internal Medicine
DX: N45.1 Epididymitis (principal); N50.812 Left testicular pain; J45.909 Unspecified asthma, uncomplicated; F17.200 Nicotine dependence, unspecified, uncomplicated; F12.90 Cannabis use, unspecified, uncomplicated; Z79.899 Other long term (current) drug therapy
CPT/HCPCS: 76870; 81001; 81003; 87086; 87491; 87591; 93975; 96372; 99283; 99284; J0696; J2003

== ENCOUNTER 2024-09-25 08:21 | Emergency (ER) | payer MEDICAID, SELFPAY ==
--- NOTE | ~2024-09-25 | CT_ITS ---
EXAMINATION: CT ABDOMEN AND PELVIS WITHOUT CONTRAST CLINICAL INFORMATION: Left flank pain. COMPARISON: September 11, 2019 TECHNIQUE: Multidetector volumetric imaging was performed from the superior aspect of the liver through the pubic symphysis. Sagittal and coronal reformatted images were obtained on the technologist's workstation. This CT examination was performed using dose optimization techniques as appropriate, variously including the following: *Automated exposure control *Adjustment of mA and/or kV according to patient size (this includes techniques or standardized protocols for targeted exams where dose is matched to indication/reason for exam; i.e. extremities or head) *Use of iterative reconstruction technique DLP: 450 mGy-cm FINDINGS: LUNG BASES: No pleural or pericardial effusion. LIVER, GALLBLADDER, AND BILIARY TREE: The noncontrast liver is normal in size and contour. No biliary ductal dilatation is present. The gallbladder is unremarkable with no evidence of radiopaque gallstones, gallbladder wall thickening, or obvious pericholecystic inflammatory changes. PANCREAS: Unremarkable. SPLEEN: Unremarkable. ADRENAL GLANDS: Unremarkable. KIDNEYS AND URETERS: The kidneys are symmetric in size. No hydronephrosis or hydroureter. Punctate nonobstructing bilateral renal calculi. No perinephric stranding. BLADDER: Unremarkable. GASTROINTESTINAL TRACT: Small and large bowel loops are of normal caliber. No small bowel obstruction. Appendix is within normal limits. ABDOMINAL WALL: No significant hernia is appreciated. LYMPH NODES: No bulky lymphadenopathy. VASCULAR: Normal caliber abdominal aorta. PELVIC VISCERA: Unremarkable. OSSEOUS STRUCTURES: No destructive bone lesion. CT/CT abdomen pelvis wo IV con IMPRESSION: Punctate bilateral nonobstructing renal calculi. No hydronephrosis. Electronically signed by: Omi Montesinos MD 09/25/2024 10:31 AM EDT
[2024-09-25 08:23] VITALS: BP 145/88; PULSE 79; RESP 18; TEMP 37.1; O2SAT 99; BMI 27.0
[2024-09-25 08:43] LABS: MANUAL DIFF FLAG NO
[2024-09-25 08:44] LABS: Basophils Absolute Auto 0.1 X10*3/uL (0.0-0.2); Basophils Percent Auto 0.6 % (0-2); Eosinophils Absolute Auto 0.4 X10*3/uL (0.0-0.4); Eosinophils Percent Auto 2.9 % (0-4); Hematocrit 42.8 % (42.0-52.0); Hemoglobin 14.2 g/dl (14.0-18.0); Imm Gran Abs Auto 0.08 X10*3/uL (0.00-0.03); Imm Gran Pct Auto 0.6 % (0.0-0.4); Lymphocytes Absolute Auto 2.7 X10*3/uL (1.2-4.9); Lymphocytes Percent Auto 19.4 % (20-40); Mean Corpuscular HGB Conc 33.2 g/dl (31.0-36.0); Mean Corpuscular Hemoglobin 29.6 pg (27.0-33.0); Mean Corpuscular Volume 89.4 fL (80.0-98.0); Mean Platelet Volume 8.4 fL (9.4-12.4); Monocytes Absolute Auto 0.8 X10*3/uL (0.1-1.2); Monocytes Percent Auto 5.3 % (2-11); Neutrophils Percent Auto 71.2 % (45-73); Platelet Count 325 X10*3/uL (160-400); Red Blood Count 4.79 X10*6/uL (4.60-5.80)
[2024-09-25 08:45] LABS: Appearance Urine Clear; Color Urine Yellow; Glucose Urine UA Negative (Negative); Leukocyte Esterase Urine Negative (Negative); Nitrite Urine Negative (Negative); Specific Gravity - Urine 1.015 (1.005-1.025); Urine Blood Negative (Negative); Urine Ketones Negative (Negative); Urine Protein Negative (Neg-Trace)
--- NOTE | 2024-09-25 08:46 | ED.GENADULT ---
HPI - General Adult General Chief complaint: General Medical Stated complaint: Kidney pain Time Seen by Provider: 09/25/24 08:46 Source: patient Mode of arrival: ambulatory Limitations: no limitations History of Present Illness ED Provider: Essence DEL VALLE narrative: Patient is a 34-year-old male recently seen here and treated for epididymitis presenting with complaint of ongoing left testicular pain which is now radiating up to his abdomen and left flank. Reports history of prior kidney stone and states that the pain feels similar. Denies any hematuria or dysuria. Denies fevers. States that 1 day after starting his antibiotics for epididymitis, he lost his prescription bottle and did not complete the full course. Denies any additional testicular swelling or penile discharge. MD complaint: testicular and flank pain Onset (ago): day(s) Location: genitals Radiation: abdomen and flank Severity: severe Quality: sharp Pain Consistency: colicky Related Data Previous Rx's ?Medication ?Instructions ?Recorded amoxicillin 500 mg capsule 500 mg PO TID 10 days #30 caps 10/01/21 naproxen 500 mg tablet 500 mg PO BID PRN pain #20 tabs 10/01/21 amoxicillin 500 mg capsule 500 mg PO TID 7 days #21 caps 05/12/22 ibuprofen 600 mg tablet 600 mg PO Q6H PRN pain #30 tabs 05/12/22 ofloxacin 0.3 % ear drops 10 drp otic (ears) DAILY 7 days #5 05/12/22 mL amoxicillin 500 mg tablet 500 mg PO Q8H #21 tabs 10/17/23 ibuprofen 600 mg tablet 600 mg PO Q6H PRN pain #20 tabs 10/17/23 albuterol sulfate 2.5 mg/3 mL 2.5 mg (3 mL) inhalation Q4H PRN 10/30/23 (0.083 %) solution for nebulization shortness of breath or wheezing #90 mL albuterol sulfate 90 mcg/actuation 2 puff inhalation Q4-6H PRN 10/30/23 aerosol inhaler shortness of breath or wheezing #8.5 grams nicotine 14 mg/24 hr daily 1 patch transdermal DAILY #14 ea 10/30/23 transdermal patch prednisone 20 mg tablet 40 mg (2 x 20 mg) PO DAILY #8 tabs 10/30/23 loperamide 2 mg tablet (Imodium 2 mg PO Q4H PRN loose stool #20 01/22/24 A-D) tabs omeprazole 20 mg capsule,delayed 20 mg PO DAILY 30 days #30 caps 01/22/24 release ondansetron 4 mg disintegrating 4 mg PO Q6-8H PRN nausea and 01/22/24 tablet vomiting #14 tabs amoxicillin 875 mg-potassium 1 tab PO BID #20 tabs 03/02/24 clavulanate 125 mg tablet ibuprofen 600 mg tablet 600 mg PO Q6H PRN fever or pain 03/02/24 #30 tabs doxycycline hyclate 100 mg tablet 100 mg PO BID #20 tabs 09/15/24 ibuprofen 600 mg tablet 600 mg PO Q6H PRN fever or pain 09/15/24 #30 tabs levofloxacin 500 mg tablet 500 mg PO DAILY 10 days #10 tabs 09/15/24 doxycycline hyclate 100 mg capsule 100 mg PO BID #20 caps 09/25/24 levofloxacin 500 mg tablet 500 mg PO DAILY #10 tabs 09/25/24 Allergies Allergy/AdvReac Type Severity Reaction Status Date / Time No Known Allergies Allergy Verified 09/25/24 08:24 Review of Systems Review of Systems: As per HPI. Yes all other systems are reviewed and are negative Constitutional: Constitutional: Reports as per HPI [facility] Past Medical History Medical History Asthma Asthma action plan declined Social History Social History Alcohol intake: current Alcohol intake frequency: holidays/special occasions only Patient Tobacco Use Status: Current everyday Tobacco user Smoked in Last 30 Days: No Use of substances other than those prescribed or required for medical reasons: No Substance Use Type: Marijuana Advance Directives: No Do you have a plan to hurt others: No Plan Physical Exam ED Vital Signs: Vital Signs - 24 hr 09/25/24 08:23 09/25/24 09:05 Temperature 98.8 F 98.2 F Pulse Rate 79 86 Respiratory Rate 18 18 Blood Pressure 145/88 H 145/89 H Pulse Oximetry 99 99 Oxygen Delivery Method Room Air Room Air BMI result Body Mass Index 27.0 Vital signs have been reviewed and appear to be correct. Blood pressure normal. Heart rate normal. Respiratory rate normal. Temperature normal. Oxygen saturation normal. Const General: cooperative, healthy appearing and no acute distress Orientation/consciousness: oriented to person, oriented to place, oriented to time and patient oriented x3 Limitations: no limitations HENMT Head: Yes normocephalic and Yes atraumatic Ears: external ears normal General nose exam: Normal external nose present Face and sinus: Yes face symmetric Mouth: oropharynx normal and moist mucous membranes Throat: Yes uvula midline Eyes Pupils: Equal, round and reactive pupils present Neck Neck: Yes normal visual inspection and Yes supple Resp Effort & Inspection: normal respiratory effort and able to speak in complete sentences Auscultation: clear to auscultation bilaterally Cardio Rate: regular rate Rhythm: regular rhythm Heart sounds: S1 normal heart sound present and S2 normal heart sound present GI Palpation (GI): Soft to palpation and nontender Auscultation: normoactive bowel sounds General: Yes no CVA tenderness Back/Spine/Pelvis Back: no CVA tenderness Skin General skin exam: elasticity normal and turgor normal Neuro General: oriented to person, oriented to place, oriented to time, patient oriented x3, moves all extremities, no focal motor deficits and CN's II-XI intact bilaterally Cranial nerves: Yes Equal, round and reactive pupils present Cognition (Neuro): normal cognition Extrem General: Yes full ROM, Yes no pedal edema and Yes no calf tenderness Psych Mental Status: mental status grossly normal Affect: normal affect Thought process: Normal thought process present Medical Decision Making Medical Decision Making MDM Narrative: Patient is a 34-year-old male recently seen here and treated for epididymitis presenting with complaint of ongoing left testicular pain which is now radiating up to his abdomen and left flank. On exam patient is awake, A+Ox3, VS WNL, afebrile, normal neurological exam without focal deficits, physical exam findings as above. Given reported symptoms and physical exam findings, initial differential includes epididymitis, UTI, renal/ureteral calculi. Labs notable for leukocytosis, no evidence of JOSE, normal electrolytes. Urine is without evidence of infection. CT notable for nonobstructing right renal calculi, no hydronephrosis. My interpretation is in agreement with the radiologist's interpretation. Review of ultrasound from visit on 09/15 shows concern for epididymorchitis, will resend prescriptions for antibiotics as patient did not take beyond first day. Refer to urology for follow up. Return precautions discussed. Patient verbalized understanding of and agreement with plan. Differential Diagnosis Differential Diagnoses: The differential diagnosis associated with the presentation includes as per [facility] Lab Data [facility] Lab Attestation statement: I reviewed the patient's lab results. As per [facility] 09/25/24 08:38 09/25/24 08:38 Labs: Lab Results 09/25/24 09/25/24 Range/Units 08:36 08:38 WBC 14.0 H (4.8-10.8) X10*3/uL RBC 4.79 (4.60-5.80) X10*6/uL Hgb 14.2 (14.0-18.0) g/dl Hct 42.8 (42.0-52.0) % MCV 89.4 (80.0-98.0) fL MCH 29.6 (27.0-33.0) pg MCHC 33.2 (31.0-36.0) g/dl RDW 14.0 (11.0-16.0) % Plt Count 325 (160-400) X10*3/uL MPV 8.4 L (9.4-12.4) fL Immature Gran % (Auto) 0.6 H (0.0-0.4) % Neut % (Auto) 71.2 (45-73) % Lymph % (Auto) 19.4 L (20-40) % Cherry % (Auto) 5.3 (2-11) % Eos % (Auto) 2.9 (0-4) % Baso % (Auto) 0.6 (0-2) % Lymph # (Auto) 2.7 (1.2-4.9) X10*3/uL Cherry # (Auto) 0.8 (0.1-1.2) X10*3/uL Eos # (Auto) 0.4 (0.0-0.4) X10*3/uL Baso # (Auto) 0.1 (0.0-0.2) X10*3/uL Abs Immat Gran (auto) 0.08 H (0.00-0.03) X10*3/uL Absolute Neuts (auto) 10.0 H (2.0-8.3) x10*3/uL Absolute Nucleated RBC 0.000 (0.0-0.012) X10*3/uL Nucleated RBC % (auto) 0.0 (0.0-0.2) /100WBC Sodium 141 (135-145) mmol/L Potassium 3.9 (3.3-5.1) mmol/L Chloride 106 (96-108) mmol/L Carbon Dioxide 28 (22-29) mmol/L Anion Gap 11 L (12-20) BUN 10 (9-16) mg/dL Creatinine 0.83 (0.5-1.4) mg/dL Estim Creat Clear Calc 114.2 Estimated GFR > 60 Random Glucose 106 (60-115) mg/dL Calcium 9.2 D (8.4-10.2) mg/dL Total Bilirubin 0.3 (0.0-1.0) mg/dL AST 21 (5-37) U/L ALT 21 (0-40) U/L Alkaline Phosphatase 57 (39-117) U/L Total Protein 6.8 (6.5-8.0) g/dL Albumin 3.7 (3.5-5.0) g/dL Urine Color Yellow Urine Appearance Clear Urine pH 6.0 (5.0-9.0) Ur Specific Petty 1.015 (1.005-1.025) Urine Protein Negative (Neg-Trace) mg/dL Urine Glucose (UA) Negative (Negative) mg/dL Urine Ketones Negative (Negative) mg/dL Urine Blood Negative (Negative) Urine Nitrite Negative (Negative) Ur Leukocyte Esterase Negative (Negative) Independent Interpretation I performed an independent interpretation of an: CT Scan Interpretation: No evidence of obstructing calculi or hydronephrosis on CT A/P. Radiology Impression Discussion of test interpretation with radiology: I have reviewed the radiologist's reading. Radiologist Impression: CT/CT abdomen pelvis wo IV con IMPRESSION: Punctate bilateral nonobstructing renal calculi. No hydronephrosis. External Record Review External record reviewed: Inpatient record, Office record and Outpatient record Prescription Management I considered prescription management with: Antibiotic Discharge Plan Discharge Clinical Impression: Epididymitis Patient Disposition: Home, Self-Care Instructions: Epididymitis (ED) Additional Instructions: You are being treated with antibiotics. Complete the full course as prescribed even if symptoms improve. Follow up with urology if symptoms persist. Return with new or concerning symptoms. Prescriptions: New doxycycline hyclate 100 mg capsule 100 mg PO BID Qty: 20 0RF levofloxacin 500 mg tablet 500 mg PO DAILY Qty: 10 0RF No Action amoxicillin 500 mg capsule 500 mg PO TID 7 Days Qty: 21 0RF ofloxacin 0.3 % drops 10 drp otic (ears) DAILY 7 Days Qty: 5 0RF ibuprofen 600 mg tablet 600 mg PO Q6H PRN (Reason: pain) Qty: 30 0RF amoxicillin 500 mg capsule 500 mg PO TID 10 Days Qty: 30 0RF naproxen 500 mg tablet 500 mg PO BID PRN (Reason: pain) Qty: 20 0RF prednisone 20 mg tablet 40 mg PO DAILY Qty: 8 0RF albuterol sulfate 90 mcg/actuation HFA aerosol inhaler 2 puff inhalation Q4-6H PRN (Reason: shortness of breath or wheezing) Qty: 8.5 0RF albuterol sulfate 2.5 mg /3 mL (0.083 %) solution for nebulization 2.5 mg inhalation Q4H PRN (Reason: shortness of breath or wheezing) Qty: 90 0RF nicotine 14 mg/24 hr patch 24 hour 1 patch transdermal DAILY Qty: 14 0RF doxycycline hyclate 100 mg tablet 100 mg PO BID Qty: 20 0RF levofloxacin 500 mg tablet 500 mg PO DAILY 10 Days Qty: 10 0RF ibuprofen 600 mg tablet 600 mg PO Q6H PRN (Reason: fever or pain) Qty: 30 0RF ibuprofen 600 mg tablet 600 mg PO Q6H PRN (Reason: pain) Qty: 20 0RF amoxicillin 500 mg tablet 500 mg PO Q8H Qty: 21 0RF loperamide [Imodium A-D] 2 mg tablet 2 mg PO Q4H PRN (Reason: loose stool) Qty: 20 0RF omeprazole 20 mg capsule,delayed release(DR/EC) 20 mg PO DAILY 30 Days Qty: 30 0RF ondansetron 4 mg tablet,disintegrating 4 mg PO Q6-8H PRN (Reason: nausea and vomiting) Qty: 14 0RF ibuprofen 600 mg tablet 600 mg PO Q6H PRN (Reason: fever or pain) Qty: 30 0RF amoxicillin-pot clavulanate 875-125 mg tablet 1 tab PO BID Qty: 20 0RF Referrals: [facility] [Provider Group] Print Language: Divehi
[2024-09-25 08:59] LABS: Alanine Aminotransferase 21 U/L (0-40); Albumin Level 3.7 g/dL (3.5-5.0); Alkaline Phosphatase 57 U/L (39-117); Anion Gap 11 (12-20); Aspartate Amino Transferase 21 U/L (5-37); Bilirubin Total 0.3 mg/dL (0.0-1.0); Blood Urea Nitrogen 10 mg/dL (9-16); Calcium 9.2 mg/dL (8.4-10.2); Carbon Dioxide 28 mmol/L (22-29); Chloride 106 mmol/L (96-108); Creatinine Clr Calc Pharmacy 114.2; Estimated Glomerular Filt Rate > 60; Glucose Random 106 mg/dL (60-115); Potassium 3.9 mmol/L (3.3-5.1); Sodium 141 mmol/L (135-145); Total Protein 6.8 g/dL (6.5-8.0)
[2024-09-25 09:05] VITALS: BP 145/89; PULSE 86; RESP 18; TEMP 36.8; O2SAT 99
--- NOTE | 2024-09-25 09:06 | PC.NURSE ---
a&ox4. vss and up to date. pt presents to the ED w/ worsening left testicular swelling/pain that radiates for testicle, LLQ, groin, LUE, and left flank. pt denies any n/v/fever/chills/urinary sx. states he was seen previously and prescribed abx. pt then misplaced bottle and did not finish regimen. pt reports hx of kidney stones in the past. pt seen by ED provider/aware of plan of care in regards to having CT completed. pt waiting for CT to be completed at this time. plan of care ongoing. call santoyo placed within reach.
[2024-09-25 10:51] VITALS: BP 145/89; PULSE 86; RESP 18; TEMP 36.8; O2SAT 99
== END 2024-09-25 11:01 | disposition home or self-care (01) ==
PROVIDERS: Emergency Provider Emergency Medicine
DX: N45.1 Epididymitis (principal); N50.812 Left testicular pain; J45.909 Unspecified asthma, uncomplicated; F17.210 Nicotine dependence, cigarettes, uncomplicated
CPT/HCPCS: 36415; 74176; 80053; 81003; 85025; 99284

== ENCOUNTER 2024-11-10 04:06 | Emergency (ER) | payer MEDICAID, SELFPAY ==
[2024-11-10] VITALS (9 sets, daily range): BP systolic 120–145; BP diastolic 66–94; PULSE 92–114; RESP 17–33; TEMP 36.7–37.2; O2SAT 92–98; BMI 25.8
--- NOTE | ~2024-11-10 | XR_ITS ---
EXAMINATION: XR CHEST CLINICAL INFORMATION: Shortness of breath. COMPARISON: Chest radiograph 06/06/2013 TECHNIQUE: Frontal view of the chest was obtained. FINDINGS: Normal appearance of the cardiomediastinal structures. No effusions or pneumothoraces. No focal pulmonary consolidation. Normal pattern of pulmonary vasculature. No central peribronchial wall thickening. No skeletal abnormalities identified. XR/XR chest 1V IMPRESSION: Normal chest. Lungs clear. Electronically signed by: Taran Chaney MD 11/10/2024 06:46 AM [place]
--- NOTE | 2024-11-10 07:08 | ED_ITS ---
HPI - SOB/Dyspnea General Chief Complaint: Dyspnea Stated Complaint: SOB Time Seen by Provider: 11/10/24 06:55 Source: patient Mode of arrival: ambulatory History of Present Illness ED Provider: Andre DEL VALLE Narrative: 34-year-old male, history of asthma, everyday smoker and sometimes vapor comes in with 2-3 days of worsening shortness of breath, also states his kids at home are ill as well with cough he reports chills. Related Data Previous Rx's ?Medication ?Instructions ?Recorded amoxicillin 500 mg capsule 500 mg PO TID 10 days #30 caps 10/01/21 naproxen 500 mg tablet 500 mg PO BID PRN pain #20 tabs 10/01/21 amoxicillin 500 mg capsule 500 mg PO TID 7 days #21 caps 05/12/22 ibuprofen 600 mg tablet 600 mg PO Q6H PRN pain #30 tabs 05/12/22 ofloxacin 0.3 % ear drops 10 drp otic (ears) DAILY 7 days #5 05/12/22 mL amoxicillin 500 mg tablet 500 mg PO Q8H #21 tabs 10/17/23 ibuprofen 600 mg tablet 600 mg PO Q6H PRN pain #20 tabs 10/17/23 albuterol sulfate 2.5 mg/3 mL 2.5 mg (3 mL) inhalation Q4H PRN 10/30/23 (0.083 %) solution for nebulization shortness of breath or wheezing #90 mL albuterol sulfate 90 mcg/actuation 2 puff inhalation Q4-6H PRN 10/30/23 aerosol inhaler shortness of breath or wheezing #8.5 grams nicotine 14 mg/24 hr daily 1 patch transdermal DAILY #14 ea 10/30/23 transdermal patch prednisone 20 mg tablet 40 mg (2 x 20 mg) PO DAILY #8 tabs 10/30/23 loperamide 2 mg tablet (Imodium 2 mg PO Q4H PRN loose stool #20 01/22/24 A-D) tabs omeprazole 20 mg capsule,delayed 20 mg PO DAILY 30 days #30 caps 01/22/24 release ondansetron 4 mg disintegrating 4 mg PO Q6-8H PRN nausea and 01/22/24 tablet vomiting #14 tabs amoxicillin 875 mg-potassium 1 tab PO BID #20 tabs 03/02/24 clavulanate 125 mg tablet ibuprofen 600 mg tablet 600 mg PO Q6H PRN fever or pain 03/02/24 #30 tabs doxycycline hyclate 100 mg tablet 100 mg PO BID #20 tabs 09/15/24 ibuprofen 600 mg tablet 600 mg PO Q6H PRN fever or pain 09/15/24 #30 tabs levofloxacin 500 mg tablet 500 mg PO DAILY 10 days #10 tabs 09/15/24 doxycycline hyclate 100 mg capsule 100 mg PO BID #20 caps 09/25/24 levofloxacin 500 mg tablet 500 mg PO DAILY #10 tabs 09/25/24 prednisone 50 mg tablet 50 mg PO DAILY 4 days #4 tabs 11/10/24 Allergies Allergy/AdvReac Type Severity Reaction Status Date / Time No Known Allergies Allergy Verified 11/10/24 04:22 Review of Systems Review of Systems: Pertinent positives and negatives as stated in [facility] Past Medical History Source: nursing notes reviewed Medical History Asthma Asthma action plan declined Social History Social History Alcohol intake: current Alcohol intake frequency: holidays/special occasions only Patient Tobacco Use Status: Current everyday Tobacco user Substance Use Type: Marijuana Advance Directives: No Advance Directives Information Provided: No Do you have a plan to hurt others: No Plan Physical Exam Vital Signs: Vital Signs: Last Vital Signs Temp 98.9 F 11/10/24 06:09 Pulse 114 H 11/10/24 08:02 Resp 28 H 11/10/24 08:02 BP 126/74 11/10/24 08:02 Pulse Ox 96 11/10/24 08:02 O2 Del Method Room Air 11/10/24 08:02 BMI result Body Mass Index 25.8 VITAL SIGNS: Reviewed. GENERAL: Well developed, well nourished, in no acute distress. HEAD: Normocephalic/atraumatic EYES: PERRLA, EOMI EARS: Ext canals without abnormality NOSE: Nares patent bilateral OROPHARYNX: no oral lesions noted, posterior pharynx clear NECK: Supple, no adenopathy LUNGS: Decreased breath sounds with trace minimal expiratory wheeze, bilateral rhonchi SpO2<93> CARDIOVASCULAR: Regular rate and rhythm without noted murmurs ABDOMEN: Soft, non-tender, non-distended with bowel sounds. MUSCULOSKELETAL: No tenderness, deformities, or effusions noted on gross inspection. EXTREMITIES: No cyanosis, clubbing or edema. SKIN: Inspection of the skin reveals no rashes NEUROLOGIC: Alert and oriented x 4. Strength and sensation to light touch were grossly intact x 4. Medications Administered Discontinued Medications Generic Name Dose Route Start Last Admin Trade Name Flavioq PRN Reason Stop Dose Admin Acetaminophen 975 mg 11/10/24 06:59 11/10/24 07:27 Acetaminophen 325 Mg Tablet PO 11/10/24 07:00 975 mg ONCE ONE Administration Albuterol Sulfate 2.5 mg/ 0 mg 11/10/24 07:20 11/10/24 07:23 Albuterol/Ipratropium 3 ml INHALE 11/10/24 07:21 5 dose ONCE ONE Administration Ibuprofen 400 mg 11/10/24 06:59 11/10/24 07:26 Ibuprofen 400 Mg Tablet PO 11/10/24 07:00 400 mg ONCE ONE Administration Prednisone 50 mg 11/10/24 06:59 11/10/24 07:26 Prednisone 10 Mg Tablet PO 11/10/24 07:00 50 mg ONCE ONE Administration Medical Decision Making Medical Decision Making [facility] Narrative: 34-year-old male with history and clinical presentation, DD DX: Asthma exacerbation, viral illness I reviewed viral testing which is negative for COVID-19 / influenza / RSV. Chest x-ray on my interpretation does not demonstrate any evidence of infiltrate or venous congestion, provided patient with initial dose of p.o. steroids and placed on an ED bronch protocol. 0816: On re-evaluation patient appears more relaxed, aeration on auscultation he has improved, he will be discharged with an inhaler and spacer as well as a short course of steroids and instructed follow-up with his primary care doctor. Differential Diagnosis Differential Diagnoses: The differential diagnosis associated with the presentation includes As above Admission/Observation Consideration of admission/observation: Escalation of care including admission/observation considered Do not suspect that patient meets inpatient level of care, but if there is decline would be admitted. Lab Data [facility] Lab Attestation statement: I reviewed the patient's lab results. As above Labs: Lab Results 11/10/24 Range/Units 06:25 Influenza Type A (PCR) NEGATIVE (Negative) Influenza Type B (PCR) NEGATIVE (Negative) RSV RNA Qual (PCR) NEGATIVE (Negative) SARS-CoV-2 RNA (RT-PCR) NEGATIVE (Negative) Independent Interpretation I performed an independent interpretation of an: Plain X-Ray Interpretation: No infiltrate or venous congestion, no pneumothorax Radiology Impression Discussion of test interpretation with radiology: I have reviewed the radiologist's reading. Radiologist Impression: As above Discharge Plan Discharge Clinical Impression: Asthma with exacerbation Patient Disposition: Home, Self-Care Instructions: Asthma (ED), How to Use a Nebulizer (ED) Additional Instructions: Resume all home medications as prescribed. Please follow-up with your primary care doctor within the next 2-3 days, do not hesitate to return to the emergency room for any worsening of your symptoms. Prescriptions: New prednisone 50 mg tablet 50 mg PO DAILY 4 Days Qty: 4 0RF No Action amoxicillin 500 mg capsule 500 mg PO TID 7 Days Qty: 21 0RF ofloxacin 0.3 % drops 10 drp otic (ears) DAILY 7 Days Qty: 5 0RF ibuprofen 600 mg tablet 600 mg PO Q6H PRN (Reason: pain) Qty: 30 0RF amoxicillin 500 mg capsule 500 mg PO TID 10 Days Qty: 30 0RF naproxen 500 mg tablet 500 mg PO BID PRN (Reason: pain) Qty: 20 0RF prednisone 20 mg tablet 40 mg PO DAILY Qty: 8 0RF albuterol sulfate 90 mcg/actuation HFA aerosol inhaler 2 puff inhalation Q4-6H PRN (Reason: shortness of breath or wheezing) Qty: 8.5 0RF albuterol sulfate 2.5 mg /3 mL (0.083 %) solution for nebulization 2.5 mg inhalation Q4H PRN (Reason: shortness of breath or wheezing) Qty: 90 0RF nicotine 14 mg/24 hr patch 24 hour 1 patch transdermal DAILY Qty: 14 0RF doxycycline hyclate 100 mg tablet 100 mg PO BID Qty: 20 0RF levofloxacin 500 mg tablet 500 mg PO DAILY 10 Days Qty: 10 0RF ibuprofen 600 mg tablet 600 mg PO Q6H PRN (Reason: fever or pain) Qty: 30 0RF doxycycline hyclate 100 mg capsule 100 mg PO BID Qty: 20 0RF levofloxacin 500 mg tablet 500 mg PO DAILY Qty: 10 0RF ibuprofen 600 mg tablet 600 mg PO Q6H PRN (Reason: pain) Qty: 20 0RF amoxicillin 500 mg tablet 500 mg PO Q8H Qty: 21 0RF loperamide [Imodium A-D] 2 mg tablet 2 mg PO Q4H PRN (Reason: loose stool) Qty: 20 0RF omeprazole 20 mg capsule,delayed release(DR/EC) 20 mg PO DAILY 30 Days Qty: 30 0RF ondansetron 4 mg tablet,disintegrating 4 mg PO Q6-8H PRN (Reason: nausea and vomiting) Qty: 14 0RF ibuprofen 600 mg tablet 600 mg PO Q6H PRN (Reason: fever or pain) Qty: 30 0RF amoxicillin-pot clavulanate 875-125 mg tablet 1 tab PO BID Qty: 20 0RF Referrals: [facility] [Primary Care Provider] - Print Language: Urdu
[2024-11-10 07:09] LABS: Influenza A PCR NEGATIVE (Negative); Influenza B PCR NEGATIVE (Negative); Resp Syncy Virus RNA Qual PCR NEGATIVE (Negative); SARS COV2 PCR INHOUSE NEGATIVE (Negative)
[2024-11-10] MEDS: Albuterol Sulfate 2.5 MG, Albuterol/Iprat 2.5/0.5MG 3 ML 3 ML INHALE (07:23)
[2024-11-10] MEDS: predniSONE 10 MG TABLET 50 MG PO (07:26)
[2024-11-10] MEDS: Ibuprofen 400 MG TABLET PO (07:26)
[2024-11-10] MEDS: Acetaminophen 325 MG TABLET 975 MG PO (07:27)
[2024-11-10] MEDS: Albuterol Sulfate 90 MCG 8 GM INHALER 2 PUFF INHALE (08:28)
== END 2024-11-10 09:05 | disposition home or self-care (01) ==
PROVIDERS: Emergency Provider Student in an Organized Health Care Education/Training Program
DX: J45.901 Unspecified asthma with (acute) exacerbation (principal); R06.02 Shortness of breath; R05.9 Cough, unspecified; F17.200 Nicotine dependence, unspecified, uncomplicated; Z03.818 Encounter for observation for suspected exposure to other biological agents ruled out
CPT/HCPCS: 0241U; 71045; 94640; 99284; 99285